=== PATIENT | female | born 1955 | race Caucasian/White ===

== ENCOUNTER 2017-03-18 14:16 | Emergency (ER) | payer BC ==
--- NOTE | 2017-03-18 20:23 | EDM.PDOC ---
ED HPI GENERAL MEDICAL PROBLEM - General Chief Complaint: Upper Extremity Injury/Pain Stated Complaint: FALL Time Seen by Provider: 03/18/17 15:15 Source of Information: Reports: Patient History Limitations: Reports: No Limitations - History of Present Illness INITIAL COMMENTS - FREE TEXT/NARRATIVE: 61 years old w f -Patient access- at [facility], fell at a gas station while pumping gas, over an object-mechanical fall- onto her right arm. Pt was seen last night her in the ed when a valcro splint was applied. Pt came back because she thinks her arm is fractured. She has more pain and swelling today. Pt denies other injuries, no N/V/D or dizziness or any other acute medical issues at this time. Pt was able to go back to work. No F/C. Onset: Today Onset Date: 03/18/17 Onset Time: 01:00 Duration: Hour(s): Location: Reports: Upper Extremity, Right Quality: Reports: Ache Severity: Mild Improves with: Reports: Rest Worsens with: Reports: Movement Context: Reports: Trauma (Pt fell at a gas station this am after work at 1 am.) Associated Symptoms: Reports: No Other Symptoms - Related Data Allergies Allergy/AdvReac Type Severity Reaction Status Date / Time diphenhydramine Allergy Tachycardia Verified 03/18/17 17:36 [From Benadryl] cigarette smoke Allergy Other Uncoded 03/18/17 17:37 mildew Allergy Other Uncoded 03/18/17 17:36 Portk Derived Products Allergy Nausea and Uncoded 03/18/17 17:35 Vomiting Home Meds: Home Meds Acetaminophen/HYDROcodone [Glenford 325-5 MG] 1 tab PO Q4H PRN #12 tab 03/18/17 [Rx ] Carvedilol [Carvedilol] 1 tab PO BID 03/18/17 [History] DULoxetine [Cymbalta] 1 cap PO DAILY 03/18/17 [History] Furosemide [Lasix] 20 mg PO DAILY PRN 03/18/17 [History] Ibuprofen 1 - 3 mg PO Q4H PRN 03/18/17 [History] Lisinopril [Lisinopril] 1 tab PO DAILY 03/18/17 [History] Omeprazole 1 cap PO BIDAC 03/18/17 [History] Sennosides 3 tab PO DAILY 03/18/17 [History] buPROPion HCl [Wellbutrin Xl] 3 tab PO DAILY 03/18/17 [History] hydrOXYzine HCl [hydrOXYzine] 1 - 2 tab PO BEDTIME PRN 03/18/17 [History] traZODone 1 - 1.5 tab PO BEDTIME 03/18/17 [History] Past Medical History - Past Surgical History HEENT Surgical History: Reports: Tonsillectomy GI Surgical History: Reports: Bariatric Procedure, Cholecystectomy, Colonoscopy , EGD, Hernia, Abdominal Female Surgical History: Reports: D&C, Hysterectomy, Other (See Below) Other Female Surgeries/Procedures: Hx bladder surgery. Dermatological Surgical History: Reports: Other (See Below) Social & Family History - Tobacco Use Smoking Status *Q: Never Smoker Review of Systems - Review of Systems Review Of Systems: See Below Constitutional: Reports: No Symptoms Eyes: Reports: No Symptoms Ears: Reports: No Symptoms Nose: Reports: No Symptoms Mouth/Throat: Reports: No Symptoms Respiratory: Reports: No Symptoms Cardiovascular: Reports: No Symptoms GI/Abdominal: Reports: No Symptoms Genitourinary: Reports: No Symptoms Musculoskeletal: Reports: Other (wrist pain) Skin: Reports: No Symptoms Neurological: Reports: No Symptoms Psychiatric: Reports: No Symptoms ED EXAM, GENERAL - Physical Exam Exam: See Below Exam Limited By: No Limitations General Appearance: Alert, WD/WN, Mild Distress Eye Exam: Bilateral Eye: Normal Inspection Ears: Normal External Exam Ear Exam: Bilateral Ear: Auricle Normal Nose: Normal Inspection Throat/Mouth: Normal Inspection Head: Atraumatic, Normocephalic Neck: Normal Inspection Respiratory/Chest: No Respiratory Distress, Lungs Clear, Normal Breath Sounds Cardiovascular: Normal Peripheral Pulses, Regular Rate, Rhythm, No Edema, No JVD GI/Abdominal: Normal Bowel Sounds, Soft, Non-Tender, No Organomegaly (Female) Exam: Deferred Rectal (Female) Exam: Deferred Back Exam: Normal Inspection, Full Range of Motion Extremities: Limited Range of Motion (right wrist with deformaty) Neurological: Alert, Oriented, CN II-XII Intact, Normal Cognition Psychiatric: Normal Affect, Normal Mood Skin Exam: Warm, Dry, Intact, Normal Color, No Rash Lymphatic: No Adenopathy Course - Vital Signs Text/Narrative:: 61 years old w f -Patient access- at [facility], fell at a gas station while pumping gas, over an object-mechanical fall- onto her right arm. Pt was seen last night her in the ed when a valcro splint was applied. Pt came back because she thinks her arm is fractured. She has more pain and swelling today. Pt denies other injuries, no N/V/D or dizziness or any other acute medical issues at this time. Pt was able to go back to work. No F/C. PE: WNWD FF NAD with r forearm deformity. Imaging: R forearm: closed comminuted fracture of right distal radius. Impression: R forearm: closed comminuted fracture of right distal radius. Tx: Valcro splint was in place, Ice, Glenford ( pt is allergic to NSAIDS) elevation Reexam: Improved. [place](?) Plan: D/C with instructions. Last Recorded V/S: Last Vital Signs Temp 36.9 C 03/18/17 15:15 Pulse 70 03/18/17 15:15 Resp 18 03/18/17 15:15 BP 105/74 03/18/17 15:15 Pulse Ox 95 03/18/17 15:15 Departure - Departure Time of Disposition: 20:24 Disposition: Home, Self-Care 01 Condition: Good Clinical Impression: Closed fracture of radius Qualifiers: Encounter type: initial encounter Radius location: distal Laterality: right - Discharge Information Prescriptions: Acetaminophen/HYDROcodone [Glenford 325-5 MG] 1 tab PO Q4H PRN #12 tab PRN Reason: for severe pain only Referrals: PCP,None [Primary Care Provider] - Forms: ED Department Discharge Additional Instructions: Please apply ice to affected area, please take Glenford for severe pain only,keep valcro splint on. Please f/u with ortho as soon as possible. Please come back if your symptoms get worse acutely.
--- NOTE | 2017-03-19 11:01 | CR ---
INDICATION: Fell last evening. RIGHT WRIST: Three views of the left wrist revealed a comminuted Colles' type fracture of the distal radial metaphysis and an oblique fracture through the ulnar styloid. Anterior angulation at the radial fracture site, as well as a degree of lateral angulation of the fracture site, producing medial angulation of the radial joint surface and dorsal angulation of the radial joint surface was noted. Minimal lateral offset of the ulnar styloid fracture fragment is noted. No other significant appearing bone or joint abnormality was identified. IMPRESSION: Colles' fracture with deformity. MTDD
== END 2017-03-18 15:45 | disposition home or self-care (01) ==
LOC: FB.ED 14:16
DX: S52.531A Colles' fracture of right radius, initial encounter for closed fracture (principal); Z79.899 Other long term (current) drug therapy; Z88.8 Allergy status to other drugs, medicaments and biological substances; Z91.048 Other nonmedicinal substance allergy status; W19.XXXA Unspecified fall, initial encounter; Y92.524 Gas station as the place of occurrence of the external cause
CPT/HCPCS: 73110-RT; 99283

== ENCOUNTER 2017-05-25 08:09 | Day surgery (SDC) | payer BC, SELFPAY ==
[2017-05-25] MEDS ORDERED: Sodium Chloride 0.9% 10 ML Syringe FLUSH PRN (08:15)
[2017-05-25] MEDS ORDERED: Lactated Ringers 1,000 ML IV SCH ×2 (08:15→08:45)
[2017-05-25] MEDS ORDERED: Naloxone 0.4 MG/ML SDV IVPUSH PRN (08:39)
[2017-05-25] MEDS ORDERED: Morphine 2 MG/ML Syringe IVPUSH PRN ×2 (08:39)
[2017-05-25] MEDS ORDERED: Promethazine 25 MG/ML SDV IM PRN (08:39)
[2017-05-25] MEDS ORDERED: Albuterol 0.083% 2.5 MG/3 ML Neb Soln NEB PRN (08:39)
[2017-05-25] MEDS ORDERED: Ondansetron 4 MG/2 ML SDV IVPUSH PRN (08:39)
[2017-05-25] MEDS ORDERED: ceFAZolin 2 GM in Premix Bag 1 BAG IV ONE (09:30)
[2017-05-25] MEDS ORDERED: Bupivacaine 0.5% 30 ML SDV INJECT ONE (09:36)
[2017-05-25] MEDS ORDERED: Phenylephrine 1% 10 MG/ML SDV IV ONE (11:00)
[2017-05-25] MEDS ORDERED: Ketamine 500 mg/10 ML MDV IV ONE (11:00)
[2017-05-25] MEDS ORDERED: Scopolamine 1 MG Transdermal Patch TOP ONE (11:00)
[2017-05-25] MEDS ORDERED: Succinylcholine/Normal Saline 100 MG/5 ML Syringe IV ONE (11:00)
[2017-05-25] MEDS ORDERED: Morphine 10 MG/ML Syringe IVPUSH ONE (11:00)
[2017-05-25] MEDS ORDERED: Citric Acid/Sodium Citrate Solution 30 ML Cup PO ONE (11:00)
[2017-05-25] MEDS ORDERED: Ondansetron 4 MG/2 ML SDV IVPUSH ONE (11:00)
[2017-05-25] MEDS ORDERED: fentaNYL 100 MCG/2 ML SDV IV ONE (11:00)
[2017-05-25] MEDS ORDERED: ePHEDrine 50 MG/ML SDV IV ONE (11:00)
[2017-05-25] MEDS ORDERED: Propofol 200 MG/20 ML SDV IV ONE (11:00)
[2017-05-25] MEDS ORDERED: Rocuronium 50 MG/5 ML Vial IV ONE (11:00)
[2017-05-25] MEDS ORDERED: EPINEPHrine 1 MG/ML SDV IV ONE (11:00)
[2017-05-25] MEDS ORDERED: Midazolam 1 MG/ML 2 ML SDV IV ONE (11:00)
[2017-05-25] MEDS ORDERED: Famotidine/Normal Saline 20 MG/50 ML BAG IV ONE (11:00)
[2017-05-25] MEDS ORDERED: hydrOXYzine HCl 50 MG/ML SDV IM ONE (11:25)
[2017-05-25] MEDS: fentaNYL 100 MCG/2 ML SDV IVPUSH PRN ×2 (11:46→12:02)
[2017-05-25] MEDS ORDERED: Ketorolac 15 MG/ML SDV IVPUSH ONE (12:03)
[2017-05-25] MEDS ORDERED: Acetaminophen/oxyCODONE 325-5 MG Tab PO PRN (12:07)
--- NOTE | 2017-05-25 12:28 | CR ---
INDICATION: Intraoperative need for evaluation of ORIF. C-ARM USE LESS THAN ONE HOUR IN O.R.: Four images of the right wrist were obtained in O.R. with C-arm for guidance in placing a plate and screws to fix the distal radial fracture fragments in place. Position and alignment appears to be satisfactory. The plate appears to be intact with multiple screws fixing it in place. MTDD
--- NOTE | 2017-05-25 14:13 | PCM.PRNOTE ---
- Free Text/Narrative Note: Operative note Preoperative diagnosis: Right distal radius malunion after closed fracture on March 18 Postoperative diagnosis: Same Procedure: #1: Open reduction and internal fixation distal radius. #2: Osteotomy right distal radius for correction of malunion Surgeon: Jacinto Villegas D.O. Anesthesia: Laryngeal mask airway Estimated blood loss: 25 mL Fluid: Lactated Ringer's solution Complications: None Specimen: None Discharge disposition: Stable to PACU History and indications for the procedure: The patient was seen preoperatively in the clinic. She was found to have malunion of the right distal radius after splinting from an injury on March 18. She was found to be shortened at least 1 cm with loss of volar tilt. Risks and benefits of the procedure were explained to the patient and informed consent was obtained. Preoperative imaging from the above-mentioned diagnosis. Details of procedure: The patient was seen by myself and the anesthesia staff the preoperative holding area where the operative site was marked. She was brought to the operative suite by the anesthesia staff where general anesthesia was administered via laryngeal mask airway. Well-padded tourniquet was placed on the right arm. The right upper extremity was prepped and draped in a sterile manner. A timeout was called identifying the correct patient, the correct procedure, the correct site, and that antibiotics are being with an appropriate period of time. Incision was made just proximal to the radiocarpal line in line with the flexure carpi radialis tendon extending proximally about 10 cm. Bleeding was controlled with Bovie electrocautery. The volar belly of the FCR tendon was then incised. The FCR was then brought radially. The dorsal sheath of the FCR was then incised. I then removed the radial attachment of the pronator and brought the pronator ulnarly. I inserted a wheatlander for retraction. I then went through the area of the fracture with a small saw blade through both the volar and dorsal cortex. I used an elevator remove any soft tissue from the bone. I removed the brachial radialis tendon which had been attached at the fracture site and cleared all tissue around the radius on its volar and radial and ulnar aspects. I then copiously irrigated with saline and placed cancellus bone chips inside the site to maintain appropriate length. I then inserted a narrow medium right locking volar distal radius plate from [employer] and held this in position with 2 K wires. I then drilled my distal row and inserted screws. I confirmed good placement on intraoperative fluoroscopy. I then drilled my proximal row and inserted screws. I then confirmed placement with intraoperative fluoroscopy. The screws have brought the plate to the bone and then I relied on the volar tilt of the plate for correction while I placed the cortical screws in the proximal holes. I confirmed appropriate placement on intraoperative fluoroscopy. We then copiously irrigated with saline. I let them of the tourniquet at 54 minutes. Minimal bleeding was encountered. I then closed the subcutaneous layer with 2-0 Vicryl. I then closed the skin with horizontal mattress 3-0 nylon sutures. I then applied a Betadine soaked Adaptic , 4 x 4's, web roll, a volar fiberglass splint, and Mirza wrap. The patient was then allowed to awaken from general anesthesia and taken to the PACU in stable condition.
--- NOTE | 2017-05-29 12:20 | PCM.SN ---
- Free Text/Narrative Note: Late entry: 05/25/17 0930 Decadron 4 mg IV
== END 2017-05-25 17:29 ==
LOC: FB.SDS 08:09 → FB.MS 14:23 → FB.SDS 14:23 → FB.MS 17:29
PROVIDERS: ATTEND Orthopaedic Surgery
DX: S52.501P Unspecified fracture of the lower end of right radius, subsequent encounter for closed fracture with malunion (principal); F41.9 Anxiety disorder, unspecified; K21.9 Gastro-esophageal reflux disease without esophagitis; I10 Essential (primary) hypertension; E55.9 Vitamin D deficiency, unspecified; Z88.8 Allergy status to other drugs, medicaments and biological substances; Z79.899 Other long term (current) drug therapy
CPT/HCPCS: 25400; 76000; A9270; J0690; J1885; J2270; J2405; J3010; J3410; J7120; C1713; J0171; J0330; J2250; J2370; J2704; P9045

== ENCOUNTER 2019-12-04 07:12 | Inpatient (IN) | payer MEDICARE, BC ==
[2019-12-04] MEDS ORDERED: Sodium Chloride 0.9% 10 ML Syringe FLUSH PRN (07:30)
[2019-12-04] MEDS: Lactated Ringers 1,000 ML IV SCH ×2 (07:46→15:24)
--- NOTE | 2019-12-04 09:25 | PCM.OPNOTE ---
- General Post-Op/Procedure Note Date of Surgery/Procedure: 12/04/19 Operative Procedure(s): c scope with biopsy Findings: ascending colon polyp Pre Op Diagnosis: bleeding per rectum Post-Op Diagnosis: ascending colon polyp x2 Anesthesia Technique: MAC Primary Surgeon: Eber Clayton Anesthesia Provider: Bin Aguilar Pathology: colon polyp Complications: None Condition: Good Free Text/Narrative:: see dictation
--- NOTE | 2019-12-04 10:39 | PCM.SURGPN ---
- General Info Date of Service: 12/04/19 POD#: 0 - Review of Systems Pulmonary: Reports: Cough (Pt noted to have regurgitation during c scope. Not felt to have aspirpated. nurse noted some wheezes which appear to have cleared. ) - Patient Data Vitals - Most Recent: Last Vital Signs Temp 97.3 F 12/04/19 09:43 Pulse 73 12/04/19 10:16 Resp 17 12/04/19 10:16 BP 110/67 12/04/19 10:16 Pulse Ox 100 12/04/19 10:16 Weight - Most Recent: 123.876 kg Med Orders - Current: Current Medications Lactated Ringer's (Ringers, Lactated) 1,000 mls @ 125 mls/hr IV ASDIRECTED COLLIN Last Admin: 12/04/19 07:46 Dose: 125 mls/hr Documented by: Sodium Chloride (Saline Flush) 10 ml FLUSH ASDIRECTED PRN PRN Reason: Keep Vein Open - Exam General: Alert, Oriented, Cooperative, No Acute Distress Lungs: Other (no wheezes. upper airway sounds ) Sepsis Event Note - Focused Exam Vital Signs: Vital Signs Temp Pulse Resp BP Pulse Ox 12/04/19 10:16 73 17 110/67 100 12/04/19 10:02 72 18 100/65 98 12/04/19 09:47 71 18 95/69 100 12/04/19 09:43 97.3 F 99 19 98 12/04/19 07:35 98.8 F 93 18 136/72 98 Date Exam was Performed: 12/04/19 Time Exam was Performed: 10:35 - Problem List & Annotations (1) Polyp of ascending colon SNOMED Code(s): 712889780 Code(s): K63.5 - POLYP OF COLON Status: Acute Current Visit: Yes Annotation/Comment:: x2 Qualifiers: Colon polyp type: adenomatous Qualified Code(s): D12.2 - Benign neoplasm of ascending colon - Problem List Review Problem List Initiated/Reviewed/Updated: Yes - My Orders Last 24 Hours: Active Orders 24 hr Category Date Time Status Patient Status [ADT] Routine ADT 12/04/19 07:30 Active Patient to Empty Bladder [RC] ASDIRECTED Care 12/04/19 07:30 Active Ready for Discharge [RC] PER UNIT ROUTINE Care 07/16/20 09:24 Active Verify Patient Consent Obtain [RC] ASDIRECTED Care 12/04/19 07:30 Active Nothing Per Oral Diet [DIET] Diet 12/03/19 Dinner Ordered Chest 2V [CR] Routine Exams 12/04/19 10:33 Ordered Lactated Ringers [Ringers, Lactated] 1,000 ml Med 12/04/19 07:30 Active IV ASDIRECTED Sodium Chloride 0.9% [Saline Flush] Med 12/04/19 07:30 Active 10 ml FLUSH ASDIRECTED PRN Peripheral IV Insertion Adult [OM.PC] Routine Oth 12/04/19 07:30 Ordered Resuscitation Status Routine Resus Stat 12/03/19 09:50 Ordered Medication Orders Lactated Ringer's (Ringers, Lactated) 1,000 mls @ 125 mls/hr IV ASDIRECTED COLLIN Last Admin: 12/04/19 07:46 Dose: 125 mls/hr Documented by: FRIEAUG Sodium Chloride (Saline Flush) 10 ml FLUSH ASDIRECTED PRN PRN Reason: Keep Vein Open - Assessment Assessment (Free Text/Narrative):: no overt evidence of aspiration maintianign sats. - Plan Plan (Free Text/Narrative):: will obtain a cxr for a baseline.
[2019-12-04] MEDS ORDERED: Albuterol/Ipratropium 3.0-0.5 MG/3 ML Neb Soln NEB ONE (11:05)
[2019-12-04] MEDS ORDERED: Calcium Carbonate 500 MG Tab.Chew PO ONE (12:19)
[2019-12-04] MEDS ORDERED: Albuterol 0.083% 2.5 MG/3 ML Neb Soln NEB ONE (12:53)
[2019-12-04] MEDS ORDERED: Pantoprazole 40 MG Vial IVPUSH ONE (12:54)
[2019-12-04] MEDS ORDERED: Sodium Chloride 0.9% 1,000 ML IV SCH (13:00)
--- NOTE | 2019-12-04 13:04 | PCM.SN.2 ---
- Free Text/Narrative Note: c/o aspiration pt came to outpt surgery for an elective colonoscopy with Dr Clayton, pt had conscious sedation with electrical tryout person at bedside, complete Go-Lytely at 02:45 and had procedure at 09:00 with surgeon and electrical tryout person at bedside, has h/o GERD and gastric bypass, no h/o gastroparesis or DM during procedure pt aspirated with prominent markings now on CxR and CT, without comparison for either CT chest read as multifocal alveolar infiltrate and bronchial wall thickening involving the VASILE and LLL typical of infectious/inflammatory pneumonitis with aspiratio not excluded. No hilar adenopathy. 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, personality DO CV: HF, nonischemic CMP : female stress incontinence, retention of urine PSH lap choly, JUSTINE with BSO, gastric bypass, tonsills, ventral hernia repair SH never smoked, no alcohol MED: BEH: trazodone 1-1.5 tab qhs, hydroxyzine 1-2 tab qhs, duloxetin 60/d CV: carvedilol 12.5 bid, lis 20/d GI: omeprazole 20 bid MOST RECENT LABS IN [facility] 3y ago with CBC neg, wbc 5.2, hgb 13.3, plt 294 3y ago with CMP with BUN/creat 13/1.2 with GFR 45, no comparison 3y ago with TSH 2.05 and neg 6y ago with d-dimer 315 (nl 100-400) PE: anxious, alert, conversant in 10-word sentences, tachypnea without dyspnea, no purse lips, no retractions, no accessory muscles, does have moderate insp/exp wheezing on L side (has been intermittently clear per RN) without rales, clear on right, fair AE, HEENT neg, neck supple no LNs, CV RRR, tachy, 2/6 DALE at LSB, quiet precordium, abd obese and soft and NT, ext with trace pretib edema b/l and symmetric, turgor WNL UEs EKG with ST 126, QTc 501, NSSTs, no comparison labs reviewed, Mg low, trop and BNP wnl 2:05p d/w Dr Perez who accepted her in admission, pt agrees, pt with no children, lives alone, HR remains 125, will keep on telemetry ASSESS aspiration pneumonitis hypomagnesemia hypoxia sinus tachycardia PLAN admit
[2019-12-04] MEDS ORDERED: Ampicillin/Sulbactam Na 3 GM in Sodium Chloride 0.9% 100 ML IV ONE (13:23)
[2019-12-04] MEDS ORDERED: Ondansetron 4 MG/2 ML SDV IV PRN (14:23)
[2019-12-04] MEDS ORDERED: Acetaminophen 325 MG Tab PO PRN (14:23)
[2019-12-04] MEDS ORDERED: Magnesium Sulfate/Water 2 GM in Premix Bag 1 BAG IV ONE (14:26)
[2019-12-04] MEDS ORDERED: Zolpidem 5 MG Tab PO PRN (14:29)
--- NOTE | 2019-12-04 14:33 | OR ---
DATE OF OPERATION: 12/04/2019 SURGEON: Eber Clayton MD PROCEDURE PERFORMED: Colonoscopy with cold forceps biopsy. PREOPERATIVE DIAGNOSIS: History of blood per rectum. POSTOPERATIVE DIAGNOSIS: Ascending colon polyps x2. INDICATIONS FOR PROCEDURE: This is a 64-year-old white female referred with history of some bleeding and some diarrhea, which has resolved. She was offered and accepted colonoscopy as part of a workup. DESCRIPTION OF OPERATION: After an excellent IV sedation was administered, digital rectal exam was performed. No marked abnormality was noted. The flexible colonoscope was inserted and advanced with some difficulty to the cecum, due to the patient's obesity and looping of the scope. We did have to apply intraabdominal pressure to achieve the cecum, but we were able to get a good view. The following findings were noted: Ascending colon and the cecum with 2 small sessile polyps, biopsied with combination of cold loop and cold forceps and submitted in one container. Transverse colon, unremarkable. Descending colon, unremarkable. Sigmoid and rectum, unremarkable. Colon was deflated as the scope was removed. The patient tolerated the procedure well, was taken to Recovery in good condition. Results will be sent by letter. /[id number] /MODL
[2019-12-04] MEDS: Albuterol 0.083% 2.5 MG/3 ML Neb Soln NEB SCH ×3 (15:31→20:22)
[2019-12-04] MEDS ORDERED: Ondansetron 4 MG/2 ML SDV IVPUSH ONE (16:09)
[2019-12-04] MEDS ORDERED: Propofol 200 MG/20 ML SDV IV ONE (16:09)
[2019-12-04] MEDS ORDERED: Lactated Ringers 1,000 ML IV ONE (16:09)
[2019-12-04] MEDS: Pantoprazole 40 MG Tab.CR PO SCH (17:03)
[2019-12-04] MEDS ORDERED: Lactated Ringers 1,000 ML IV SCH (19:05)
[2019-12-04] MEDS: Ampicillin/Sulbactam Na 3 GM in Sodium Chloride 0.9% 100 ML IV SCH (19:08)
--- NOTE | 2019-12-04 19:39 | PCM.HP.2 ---
H&P History of Present Illness - General Date of Service: 12/04/19 Admit Problem/Dx: Admission Diagnosis/Problem Admission Diagnosis/Problem Colonoscopy Source of Information: Patient, Old Records History Limitations: Reports: No Limitations - History of Present Illness Initial Comments - Free Text/Narative: Rhonda is a 64-year-old female who comes in because of aspiration pneumonitis. She had a colonoscopy this morning, by Dr. Clayton, for constipation. During the procedure and conscious sedation, she experienced vomiting and ostensibly aspirated. She subsequently became hypoxic was transferred to the ER where workup revealed an infiltration of the left lobe of lung. She is currently stable on 2 L of oxygenation;complains of no pain she dove initial wheezing which is symptoms improved. She does history of obesity, she status post gastric bypass. She also has a history of nonischemic cardiomyopathy major depression and iron deficiency anemia. Head Pain Score (Numeric/FACES): 4 - Related Data Allergies/Adverse Reactions: Allergies Allergy/AdvReac Type Severity Reaction Status Date / Time diphenhydramine Allergy Tachycardia Verified 12/04/19 07:44 [From Benadryl] cigarette smoke Allergy Other Uncoded 12/04/19 07:44 mildew Allergy Other Uncoded 12/04/19 07:44 Portk Derived Products Allergy Nausea and Uncoded 12/04/19 07:44 Vomiting Home Medications: Home Meds DULoxetine [Cymbalta] 60 mg PO DAILY 03/18/17 [History] Ibuprofen 1 - 3 mg PO Q4H PRN 03/18/17 [History] Lisinopril 20 mg PO DAILY 03/18/17 [History] Omeprazole 20 mg PO BIDAC 03/18/17 [History] carvediloL [Carvedilol] 12.5 mg PO BID 03/18/17 [History] hydrOXYzine HCL [hydrOXYzine] 25 - 50 mg PO BEDTIME PRN 03/18/17 [History] traZODone 150 mg PO BEDTIME 03/18/17 [History] Past Medical History HEENT History: Reports: Impaired Vision, Sinusitis Other HEENT History: ESOPHAGEAL REFLUX; LABYRINTH DYSFUNCTION OF BOTH EARS Cardiovascular History: Reports: Heart Failure, Hypertension, Other (See Below) Other Cardiovascular History: NONISCHEMIC CARDIOMYOPATHY Gastrointestinal History: Reports: GERD Genitourinary History: Reports: Renal Calculus Musculoskeletal History: Reports: Fracture Neurological History: Reports: Migraines, Vertigo Psychiatric History: Reports: Anxiety, Depression, Suicide Attempt Other Psychiatric History: personality disorder; MAJOR DEPRESSIVE DISORDER; DYSTHYMIC DISORDER; GENERALIZE ANXIETY DISORDER; Endocrine/Metabolic History: Reports: Obesity/BMI 30+, Vitamin D Deficiency Other Endocrine/Metabolic History: IRON DEFICIENCY ANEMIA; NUTRITIONAL ANEMIA; Oncologic (Cancer) History: Reports: Uterine - Past Surgical History HEENT Surgical History: Reports: Tonsillectomy GI Surgical History: Reports: Appendectomy, Bariatric Procedure, Cholecystectomy Female Surgical History: Reports: Hysterectomy, Oophorectomy, Other (See Below) Other Female Surgeries/Procedures: Hx bladder surgery. Dermatological Surgical History: Reports: Other (See Below) Social & Family History - Family History Family Medical History: Noncontributory - Tobacco Use Smoking Status *Q: Never Smoker Second Hand Smoke Exposure: Yes - Caffeine Use Caffeine Use: Reports: Coffee, Tea - Recreational Drug Use Recreational Drug Use: No H&P Review of Systems - Review of Systems: Review Of Systems: Comprehensive ROS is negative, except as noted in HPI. Exam - Exam Exam: See Below - Vital Signs Vital Signs: Last Vital Signs Temp 99.9 F 12/04/19 15:16 Pulse 108 H 12/04/19 15:16 Resp 20 12/04/19 15:16 BP 106/59 L 12/04/19 15:16 Pulse Ox 96 12/04/19 18:42 Weight: 125.237 kg - Exam Quality Assessment: Supplemental Oxygen General: Alert, Oriented HEENT: PERRLA Neck: Supple, Trachea Midline Lungs: Rales Cardiovascular: Regular Rate GI/Abdominal Exam: Normal Bowel Sounds, Soft (Female) Exam: Deferred Rectal (Female) Exam: Deferred Back Exam: Normal Inspection Extremities: Normal Inspection Skin: Warm, Dry Neurological: Cranial Nerves Intact Neuro Extensive - Mental Status: Alert, Oriented x3 Neuro Extensive - Motor, Sensory, Reflexes: CN II-XII Intact Psychiatric: Alert, Normal Affect - Patient Data Lab Results Last 24 hrs: Laboratory Results - last 24 hr 12/04/19 12/04/19 12/04/19 Range/Units 13:30 13:30 13:30 WBC 6.2 (4.5-12.0) X10-3/uL RBC 4.79 (3.23-5.20) x10(6)uL Hgb 14.5 (11.5-15.5) g/dL Hct 45.1 (30.0-51.3) % MCV 94.3 (80-96) fL MCH 30.3 (27.7-33.6) pg MCHC 32.1 L (32.2-35.4) g/dL RDW 13.5 (11.5-15.5) % Plt Count 225 (125-369) X10(3)uL MPV 6.7 L (7.4-10.4) fL Neut % (Auto) 83.4 H (46-82) % Lymph % (Auto) 11.5 L (13-37) % [place] % (Auto) 2.2 L (4-12) % Eos % (Auto) 1 (1.0-5.0) % Baso % (Auto) 2 (0-2) % Neut # (Auto) 5.3 (1.6-8.3) # Lymph # (Auto) 0.7 (0.6-5.0) # [place] # (Auto) 0.1 (0.0-1.3) # Eos # (Auto) 0.0 (0.0-0.8) # Baso # (Auto) 0.1 (0.0-0.2) # Sodium 140 (135-145) mmol/L Potassium 4.2 (3.5-5.3) mmol/L Chloride 105 (100-110) mmol/L Carbon Dioxide 28 (21-32) mmol/L BUN 10 (7-18) mg/dL Creatinine 1.1 H (0.55-1.02) mg/dL Est Cr Clr Drug Dosing 38.88 mL/min Estimated GFR (MDRD) 50 L (>60) BUN/Creatinine Ratio 9.1 (9-20) Glucose 112 (80-116) mg/dL Lactic Acid (0.4-2.0) mmol/L Calcium 8.3 L (8.6-10.2) mg/dL Magnesium (1.8-2.5) mg/dL Total Bilirubin 0.7 (0.1-1.3) mg/dL AST 24 (5-25) IU/L ALT 20 (12-36) U/L Alkaline Phosphatase 139 H (56-112) IU/L Troponin I (4.0-60.3) pg/mL C-Reactive Protein 1.4 H (0.5-0.9) mg/dL NT-Pro-B Natriuret Pep (<=125) pg/mL Total Protein 6.6 (6.0-8.0) g/dL Albumin 3.2 (3.2-4.6) g/dL Globulin 3.4 g/dL Albumin/Globulin Ratio 0.9 Urine Color (YELLOW) Urine Appearance (CLEAR) Urine pH (5.0-6.5) Ur Specific [place] (1.010-1.025) Urine Protein (NEGATIVE) mg/dL Urine Glucose (UA) (NORMAL) mg/dL Urine Ketones (NEGATIVE) mg/dL Urine Occult Blood (NEGATIVE) Urine Nitrite (NEGATIVE) Urine Bilirubin (NEGATIVE) Urine Urobilinogen (NEGATIVE) mg/dL Ur Leukocyte Esterase (NEGATIVE) Urine WBC (0-5) Ur Squamous Epith Cells (NS,R,O) Urine Bacteria (NS) 12/04/19 12/04/19 12/04/19 Range/Units 13:30 13:30 13:30 WBC (4.5-12.0) X10-3/uL RBC (3.23-5.20) x10(6)uL Hgb (11.5-15.5) g/dL Hct (30.0-51.3) % MCV (80-96) fL MCH (27.7-33.6) pg MCHC (32.2-35.4) g/dL RDW (11.5-15.5) % Plt Count (125-369) X10(3)uL MPV (7.4-10.4) fL Neut % (Auto) (46-82) % Lymph % (Auto) (13-37) % [place] % (Auto) (4-12) % Eos % (Auto) (1.0-5.0) % Baso % (Auto) (0-2) % Neut # (Auto) (1.6-8.3) # Lymph # (Auto) (0.6-5.0) # [place] # (Auto) (0.0-1.3) # Eos # (Auto) (0.0-0.8) # Baso # (Auto) (0.0-0.2) # Sodium (135-145) mmol/L Potassium (3.5-5.3) mmol/L Chloride (100-110) mmol/L Carbon Dioxide (21-32) mmol/L BUN (7-18) mg/dL Creatinine (0.55-1.02) mg/dL Est Cr Clr Drug Dosing mL/min Estimated GFR (MDRD) (>60) BUN/Creatinine Ratio (9-20) Glucose (80-116) mg/dL Lactic Acid 1.4 (0.4-2.0) mmol/L Calcium (8.6-10.2) mg/dL Magnesium 1.6 L (1.8-2.5) mg/dL Total Bilirubin (0.1-1.3) mg/dL AST (5-25) IU/L ALT (12-36) U/L Alkaline Phosphatase (56-112) IU/L Troponin I 5.2 (4.0-60.3) pg/mL C-Reactive Protein (0.5-0.9) mg/dL NT-Pro-B Natriuret Pep 94 (<=125) pg/mL Total Protein (6.0-8.0) g/dL Albumin (3.2-4.6) g/dL Globulin g/dL Albumin/Globulin Ratio Urine Color (YELLOW) Urine Appearance (CLEAR) Urine pH (5.0-6.5) Ur Specific [place] (1.010-1.025) Urine Protein (NEGATIVE) mg/dL Urine Glucose (UA) (NORMAL) mg/dL Urine Ketones (NEGATIVE) mg/dL Urine Occult Blood (NEGATIVE) Urine Nitrite (NEGATIVE) Urine Bilirubin (NEGATIVE) Urine Urobilinogen (NEGATIVE) mg/dL Ur Leukocyte Esterase (NEGATIVE) Urine WBC (0-5) Ur Squamous Epith Cells (NS,R,O) Urine Bacteria (NS) 12/04/19 Range/Units 13:34 WBC (4.5-12.0) X10-3/uL RBC (3.23-5.20) x10(6)uL Hgb (11.5-15.5) g/dL Hct (30.0-51.3) % MCV (80-96) fL MCH (27.7-33.6) pg MCHC (32.2-35.4) g/dL RDW (11.5-15.5) % Plt Count (125-369) X10(3)uL MPV (7.4-10.4) fL Neut % (Auto) (46-82) % Lymph % (Auto) (13-37) % [place] % (Auto) (4-12) % Eos % (Auto) (1.0-5.0) % Baso % (Auto) (0-2) % Neut # (Auto) (1.6-8.3) # Lymph # (Auto) (0.6-5.0) # [place] # (Auto) (0.0-1.3) # Eos # (Auto) (0.0-0.8) # Baso # (Auto) (0.0-0.2) # Sodium (135-145) mmol/L Potassium (3.5-5.3) mmol/L Chloride (100-110) mmol/L Carbon Dioxide (21-32) mmol/L BUN (7-18) mg/dL Creatinine (0.55-1.02) mg/dL Est Cr Clr Drug Dosing mL/min Estimated GFR (MDRD) (>60) BUN/Creatinine Ratio (9-20) Glucose (80-116) mg/dL Lactic Acid (0.4-2.0) mmol/L Calcium (8.6-10.2) mg/dL Magnesium (1.8-2.5) mg/dL Total Bilirubin (0.1-1.3) mg/dL AST (5-25) IU/L ALT (12-36) U/L Alkaline Phosphatase (56-112) IU/L Troponin I (4.0-60.3) pg/mL C-Reactive Protein (0.5-0.9) mg/dL NT-Pro-B Natriuret Pep (<=125) pg/mL Total Protein (6.0-8.0) g/dL Albumin (3.2-4.6) g/dL Globulin g/dL Albumin/Globulin Ratio Urine Color Yellow (YELLOW) Urine Appearance Slightly cloudy (CLEAR) Urine pH 5.0 (5.0-6.5) Ur Specific [place] 1.015 (1.010-1.025) Urine Protein Negative (NEGATIVE) mg/dL Urine Glucose (UA) Normal (NORMAL) mg/dL Urine Ketones 15 H (NEGATIVE) mg/dL Urine Occult Blood Negative (NEGATIVE) Urine Nitrite Negative (NEGATIVE) Urine Bilirubin Negative (NEGATIVE) Urine Urobilinogen Normal (NEGATIVE) mg/dL Ur Leukocyte Esterase Moderate H (NEGATIVE) Urine WBC 5-10 H (0-5) Ur Squamous Epith Cells Few H (NS,R,O) Urine Bacteria Moderate H (NS) Result Diagrams: 12/04/19 13:30 12/04/19 13:30 Sepsis Event Note - Evaluation Sepsis Screening Result: No Definite Risk - Focused Exam Vital Signs: Vital Signs Temp Pulse Resp BP Pulse Ox Pulse Ox 12/04/19 18:42 96 12/04/19 15:31 97 12/04/19 15:16 99.9 F 108 H 20 106/59 L 97 12/04/19 14:23 97 12/04/19 14:11 124 H 22 H 114/70 93 L 12/04/19 13:37 126 H 23 H 131/75 96 12/04/19 13:03 124 H 22 H 131/75 95 12/04/19 12:30 108 H 18 143/100 H 97 12/04/19 12:10 98.1 F 12/04/19 11:48 85 16 117/55 L 92 L 12/04/19 11:30 76 17 112/59 L 95 12/04/19 11:15 74 16 106/57 L 95 12/04/19 10:54 69 15 133/66 95 12/04/19 10:30 76 17 107/90 93 L 12/04/19 10:16 73 17 110/67 100 12/04/19 10:02 72 18 100/65 98 12/04/19 09:47 71 18 95/69 100 12/04/19 09:43 97.3 F 99 19 98 12/04/19 07:35 98.8 F 93 18 136/72 98 Date Exam was Performed: 12/04/19 Time Exam was Performed: 19:32 - Problem List (1) Aspiration pneumonitis SNOMED Code(s): 291144094 ICD Code: J69.0 - PNEUMONITIS DUE TO INHALATION OF FOOD AND VOMIT Status: Acute Current Visit: Yes (2) Obesities, morbid SNOMED Code(s): 021595731 ICD Code: E66.01 - MORBID (SEVERE) OBESITY DUE TO EXCESS CALORIES Status: Acute Current Visit: Yes (3) Status post gastric bypass for obesity SNOMED Code(s): 202513868, 300084758, 482772580, 994696601 ICD Code: Z98.84 - BARIATRIC SURGERY STATUS Status: Acute Current Visit: Yes (4) Non-ischemic cardiomyopathy SNOMED Code(s): 72480628 ICD Code: I42.8 - OTHER CARDIOMYOPATHIES Status: Acute Current Visit: Yes (5) Personality disorder SNOMED Code(s): 80829286 ICD Code: F60.9 - PERSONALITY DISORDER, UNSPECIFIED Status: Acute Current Visit: Yes (6) MDD (major depressive disorder) SNOMED Code(s): 436507290 ICD Code: F32.9 - MAJOR DEPRESSIVE DISORDER, SINGLE EPISODE, UNSPECIFIED Status: Acute Current Visit: Yes Qualifiers: Major depression recurrence: recurrent Problem List Initiated/Reviewed/Updated: Yes Orders Last 24hrs: Active Orders 24 hr Category Date Time Status Admission Status [Patient Status] [ADT] Routine ADT 12/04/19 14:15 Active Patient Status [ADT] Routine ADT 12/04/19 07:30 Active Cardiac Monitoring [RC] CONTINUOUS Care 12/04/19 14:23 Active EKG Documentation Completion [RC] 08 Care 12/04/19 14:35 Active Oxygen Therapy [RC] PRN Care 12/04/19 14:23 Active RT Aerosol Therapy [RC] ASDIRECTED Care 12/04/19 14:24 Active RT Incentive Spirometry [RC] Q4HWA Care 12/04/19 19:30 Ordered Ready for Discharge [RC] PER UNIT ROUTINE Care 12/04/19 09:24 Active Up With Assistance [RC] ASDIRECTED Care 12/04/19 14:23 Active Vital Signs [RC] 00,04,08,12,16,20 Care 12/04/19 14:23 Active 2 Gram Sodium Diet [DIET] Diet 12/05/19 Breakfast Active Chest 2V [CR] Routine Exams 12/04/19 10:33 Taken Chest wo Cont [CT] Routine Exams 12/04/19 11:03 Taken BASIC METABOLIC PANEL,BMP [CHEM] DAILY Lab 12/05/19 05:11 Ordered BASIC METABOLIC PANEL,BMP [CHEM] DAILY Lab 12/06/19 05:11 Ordered BASIC METABOLIC PANEL,BMP [CHEM] DAILY Lab 12/07/19 05:11 Ordered CBC WITH AUTO DIFF [HEME] DAILY Lab 12/05/19 05:11 Ordered CBC WITH AUTO DIFF [HEME] DAILY Lab 12/06/19 05:11 Ordered CBC WITH AUTO DIFF [HEME] DAILY Lab 12/07/19 05:11 Ordered COMPREHENSIVE METABOLIC PN,CMP [CHEM] AM Lab 12/05/19 05:11 Ordered CULTURE URINE [RM] Routine Lab 12/04/19 13:31 Received PRO B-TYPE NATRIUR PEPT,BNPPRO [CHEM] DAILY Lab 12/05/19 05:11 Ordered TROPONIN I [CHEM] Routine Lab 12/05/19 05:11 Ordered Acetaminophen [Tylenol] Med 12/04/19 14:23 Active 650 mg PO Q4H PRN Albuterol [Proventil Neb Soln] Med 12/04/19 14:30 Active 2.5 mg NEB Q3H Ampicillin/Sulbactam Na [Unasyn] 3 gm Med 12/04/19 19:30 Active Sodium Chloride 0.9% [Normal Saline] 100 ml IV Q6H DULoxetine [Cymbalta] Med 12/05/19 09:00 Active 60 mg PO DAILY Enoxaparin [Lovenox] Med 12/04/19 21:00 Active 40 mg SUBCUT Q24H Ondansetron [Zofran] Med 12/04/19 14:23 Active 4 mg IV Q4H PRN Pantoprazole [ProTONIX] Med 12/04/19 17:30 Active 40 mg PO BIDAC Sodium Chloride 0.9% [Normal Saline] 1,000 ml Med 12/04/19 13:00 Active IV ASDIRECTED Sodium Chloride 0.9% [Saline Flush] Med 12/04/19 07:30 Active 10 ml FLUSH ASDIRECTED PRN Zolpidem [Ambien] Med 12/04/19 14:29 Active 5 mg PO BEDTIME PRN carvediloL [Coreg] Med 12/04/19 21:00 Active 12.5 mg PO BID lisinopriL [Prinivil] Med 12/05/19 09:00 Active 20 mg PO DAILY traZODone Med 12/04/19 21:00 Active 150 mg PO BEDTIME Peripheral IV Insertion Adult [OM.PC] Routine Oth 12/04/19 07:30 Ordered EKG 12 Lead [EK] Routine Ther 12/04/19 12:55 Ordered EKG 12 Lead [EK] Routine Ther 12/05/19 08:00 Ordered Medication Orders Acetaminophen (Tylenol) 650 mg PO Q4H PRN PRN Reason: Pain (Mild 1-3)/fever Last Admin: 12/04/19 17:03 Dose: 650 mg Documented by: [id number] Albuterol (Proventil Neb Soln) 2.5 mg NEB Q3H [facility] Last Admin: 12/04/19 18:20 Dose: 2.5 mg Documented by: Admin: 12/04/19 15:31 Dose: 2.5 mg Documented by: [email or web address] Carvedilol (Coreg) 12.5 mg PO BID [facility] Duloxetine HCl (Cymbalta) 60 mg PO DAILY [facility] Enoxaparin Sodium (Lovenox) 40 mg SUBCUT Q24H [facility] Sodium Chloride (Normal Saline) 1,000 mls @ 999 mls/hr IV ASDIRECTED [facility] Last Admin: 12/04/19 13:22 Dose: 999 mls/hr Documented by: [email or web address] Ampicillin Sodium/Sulbactam (Sodium 3 gm/ Sodium Chloride) 100 mls @ 100 mls/hr IV Q6H [facility] Last Admin: 12/04/19 19:08 Dose: 100 mls/hr Documented by: [id number] Lisinopril (Prinivil) 20 mg PO DAILY [facility] Ondansetron HCl (Zofran) 4 mg IV Q4H PRN PRN Reason: Nausea/Vomiting Pantoprazole Sodium (Protonix) 40 mg PO BIDAC [facility] Last Admin: 12/04/19 17:03 Dose: 40 mg Documented by: [id number] Sodium Chloride (Saline Flush) 10 ml FLUSH ASDIRECTED PRN PRN Reason: Keep Vein Open Trazodone HCl (Trazodone) 150 mg PO BEDTIME [facility] Zolpidem Tartrate (Ambien) 5 mg PO BEDTIME PRN PRN Reason: Insomnia Assessment/Plan Comment:: Admit for IV antinitoics,.O2 supplementation and IS. Repeat labs in Am
[2019-12-04] MEDS: Enoxaparin 40 MG/0.4 ML Syringe SUBCUT SCH (20:27)
[2019-12-04] MEDS: traZODone 50 MG Tab PO SCH (20:28)
[2019-12-04] MEDS: Carvedilol 12.5 MG Tab PO SCH (20:28)
[2019-12-05] MEDS: Albuterol 0.083% 2.5 MG/3 ML Neb Soln NEB SCH ×4 (00:28→08:47)
[2019-12-05] MEDS: Ampicillin/Sulbactam Na 3 GM in Sodium Chloride 0.9% 100 ML IV SCH ×4 (00:30→19:24)
[2019-12-05] MEDS: Pantoprazole 40 MG Tab.CR PO SCH ×2 (06:30→17:40)
[2019-12-05] MEDS: DULoxetine 60 MG Cap PO SCH (08:46)
[2019-12-05] MEDS: Carvedilol 12.5 MG Tab PO SCH ×2 (08:46→20:37)
[2019-12-05] MEDS: Lisinopril 20 MG Tab PO SCH (08:46)
--- NOTE | 2019-12-05 10:42 | PCM.PN ---
- General Info Date of Service: 12/05/19 Admission Dx/Problem (Free Text): Doing better this morning, weaned off oxygen. Denies shortness of breath. No abdominal pain, nausea, vomiting. States she normally takes Omeprazole for heartburn, tries to prop herself up at home. States she has been dealing with depression, gained weight to do decreased activity with increased intake. Admits that she is deconditioned. Does want to see spiritual services this morning. Found 2 polyps on Colonoscopy yesterday, white count up today. - Patient Data Vitals - Most Recent: Last Vital Signs Temp 98.5 F 12/05/19 08:00 Pulse 82 12/05/19 09:00 Resp 18 12/05/19 08:00 BP 135/53 L 12/05/19 08:46 Pulse Ox 92 L 12/05/19 09:00 Weight - Most Recent: 276 lb 1.6 oz I&O - Last 24 Hours: Intake & Output 12/04/19 12/05/19 12/05/19 22:59 06:59 14:59 Intake Total 1586 450 Balance 1586 450 Lab Results Last 24 Hours: Laboratory Results - last 24 hr 12/04/19 12/04/19 12/04/19 Range/Units 13:30 13:30 13:30 WBC 6.2 (4.5-12.0) X10-3/uL RBC 4.79 (3.23-5.20) x10(6)uL Hgb 14.5 (11.5-15.5) g/dL Hct 45.1 (30.0-51.3) % MCV 94.3 (80-96) fL MCH 30.3 (27.7-33.6) pg MCHC 32.1 L (32.2-35.4) g/dL RDW 13.5 (11.5-15.5) % Plt Count 225 (125-369) X10(3)uL MPV 6.7 L (7.4-10.4) fL Neut % (Auto) 83.4 H (46-82) % Lymph % (Auto) 11.5 L (13-37) % [place] % (Auto) 2.2 L (4-12) % Eos % (Auto) 1 (1.0-5.0) % Baso % (Auto) 2 (0-2) % Neut # (Auto) 5.3 (1.6-8.3) # Lymph # (Auto) 0.7 (0.6-5.0) # [place] # (Auto) 0.1 (0.0-1.3) # Eos # (Auto) 0.0 (0.0-0.8) # Baso # (Auto) 0.1 (0.0-0.2) # Sodium 140 (135-145) mmol/L Potassium 4.2 (3.5-5.3) mmol/L Chloride 105 (100-110) mmol/L Carbon Dioxide 28 (21-32) mmol/L BUN 10 (7-18) mg/dL Creatinine 1.1 H (0.55-1.02) mg/dL Est Cr Clr Drug Dosing 38.88 mL/min Estimated GFR (MDRD) 50 L (>60) BUN/Creatinine Ratio 9.1 (9-20) Glucose 112 (80-116) mg/dL Lactic Acid (0.4-2.0) mmol/L Calcium 8.3 L (8.6-10.2) mg/dL Magnesium (1.8-2.5) mg/dL Total Bilirubin 0.7 (0.1-1.3) mg/dL AST 24 (5-25) IU/L ALT 20 (12-36) U/L Alkaline Phosphatase 139 H (56-112) IU/L Troponin I (4.0-60.3) pg/mL C-Reactive Protein 1.4 H (0.5-0.9) mg/dL NT-Pro-B Natriuret Pep (<=125) pg/mL Total Protein 6.6 (6.0-8.0) g/dL Albumin 3.2 (3.2-4.6) g/dL Globulin 3.4 g/dL Albumin/Globulin Ratio 0.9 Urine Color (YELLOW) Urine Appearance (CLEAR) Urine pH (5.0-6.5) Ur Specific [place] (1.010-1.025) Urine Protein (NEGATIVE) mg/dL Urine Glucose (UA) (NORMAL) mg/dL Urine Ketones (NEGATIVE) mg/dL Urine Occult Blood (NEGATIVE) Urine Nitrite (NEGATIVE) Urine Bilirubin (NEGATIVE) Urine Urobilinogen (NEGATIVE) mg/dL Ur Leukocyte Esterase (NEGATIVE) Urine WBC (0-5) Ur Squamous Epith Cells (NS,R,O) Urine Bacteria (NS) 12/04/19 12/04/19 12/04/19 Range/Units 13:30 13:30 13:30 WBC (4.5-12.0) X10-3/uL RBC (3.23-5.20) x10(6)uL Hgb (11.5-15.5) g/dL Hct (30.0-51.3) % MCV (80-96) fL MCH (27.7-33.6) pg MCHC (32.2-35.4) g/dL RDW (11.5-15.5) % Plt Count (125-369) X10(3)uL MPV (7.4-10.4) fL Neut % (Auto) (46-82) % Lymph % (Auto) (13-37) % [place] % (Auto) (4-12) % Eos % (Auto) (1.0-5.0) % Baso % (Auto) (0-2) % Neut # (Auto) (1.6-8.3) # Lymph # (Auto) (0.6-5.0) # [place] # (Auto) (0.0-1.3) # Eos # (Auto) (0.0-0.8) # Baso # (Auto) (0.0-0.2) # Sodium (135-145) mmol/L Potassium (3.5-5.3) mmol/L Chloride (100-110) mmol/L Carbon Dioxide (21-32) mmol/L BUN (7-18) mg/dL Creatinine (0.55-1.02) mg/dL Est Cr Clr Drug Dosing mL/min Estimated GFR (MDRD) (>60) BUN/Creatinine Ratio (9-20) Glucose (80-116) mg/dL Lactic Acid 1.4 (0.4-2.0) mmol/L Calcium (8.6-10.2) mg/dL Magnesium 1.6 L (1.8-2.5) mg/dL Total Bilirubin (0.1-1.3) mg/dL AST (5-25) IU/L ALT (12-36) U/L Alkaline Phosphatase (56-112) IU/L Troponin I 5.2 (4.0-60.3) pg/mL C-Reactive Protein (0.5-0.9) mg/dL NT-Pro-B Natriuret Pep 94 (<=125) pg/mL Total Protein (6.0-8.0) g/dL Albumin (3.2-4.6) g/dL Globulin g/dL Albumin/Globulin Ratio Urine Color (YELLOW) Urine Appearance (CLEAR) Urine pH (5.0-6.5) Ur Specific [place] (1.010-1.025) Urine Protein (NEGATIVE) mg/dL Urine Glucose (UA) (NORMAL) mg/dL Urine Ketones (NEGATIVE) mg/dL Urine Occult Blood (NEGATIVE) Urine Nitrite (NEGATIVE) Urine Bilirubin (NEGATIVE) Urine Urobilinogen (NEGATIVE) mg/dL Ur Leukocyte Esterase (NEGATIVE) Urine WBC (0-5) Ur Squamous Epith Cells (NS,R,O) Urine Bacteria (NS) 12/04/19 12/05/19 12/05/19 Range/Units 13:34 06:32 06:32 WBC 15.0 H (4.5-12.0) X10-3/uL RBC 3.94 (3.23-5.20) x10(6)uL Hgb 12.2 (11.5-15.5) g/dL Hct 36.9 (30.0-51.3) % MCV 93.6 (80-96) fL MCH 30.9 (27.7-33.6) pg MCHC 33.0 (32.2-35.4) g/dL RDW 13.8 (11.5-15.5) % Plt Count 219 (125-369) X10(3)uL MPV 6.7 L (7.4-10.4) fL Neut % (Auto) 84.3 H (46-82) % Lymph % (Auto) 9.3 L (13-37) % [place] % (Auto) 5.1 (4-12) % Eos % (Auto) 1 (1.0-5.0) % Baso % (Auto) 1 (0-2) % Neut # (Auto) 12.6 H (1.6-8.3) # Lymph # (Auto) 1.4 (0.6-5.0) # [place] # (Auto) 0.8 (0.0-1.3) # Eos # (Auto) 0.1 (0.0-0.8) # Baso # (Auto) 0.1 (0.0-0.2) # Sodium 139 (135-145) mmol/L Potassium 3.5 (3.5-5.3) mmol/L Chloride 106 (100-110) mmol/L Carbon Dioxide 29 (21-32) mmol/L BUN 11 (7-18) mg/dL Creatinine 1.3 H (0.55-1.02) mg/dL Est Cr Clr Drug Dosing 38.30 mL/min Estimated GFR (MDRD) 41 L (>60) BUN/Creatinine Ratio 8.5 L (9-20) Glucose 114 (80-116) mg/dL Lactic Acid (0.4-2.0) mmol/L Calcium 7.7 L (8.6-10.2) mg/dL Magnesium (1.8-2.5) mg/dL Total Bilirubin 1.0 (0.1-1.3) mg/dL AST 17 D (5-25) IU/L ALT 14 D (12-36) U/L Alkaline Phosphatase 102 (56-112) IU/L Troponin I (4.0-60.3) pg/mL C-Reactive Protein (0.5-0.9) mg/dL NT-Pro-B Natriuret Pep (<=125) pg/mL Total Protein 5.6 L (6.0-8.0) g/dL Albumin 2.5 L (3.2-4.6) g/dL Globulin 3.1 g/dL Albumin/Globulin Ratio 0.8 Urine Color Yellow (YELLOW) Urine Appearance Slightly cloudy (CLEAR) Urine pH 5.0 (5.0-6.5) Ur Specific [place] 1.015 (1.010-1.025) Urine Protein Negative (NEGATIVE) mg/dL Urine Glucose (UA) Normal (NORMAL) mg/dL Urine Ketones 15 H (NEGATIVE) mg/dL Urine Occult Blood Negative (NEGATIVE) Urine Nitrite Negative (NEGATIVE) Urine Bilirubin Negative (NEGATIVE) Urine Urobilinogen Normal (NEGATIVE) mg/dL Ur Leukocyte Esterase Moderate H (NEGATIVE) Urine WBC 5-10 H (0-5) Ur Squamous Epith Cells Few H (NS,R,O) Urine Bacteria Moderate H (NS) 12/05/19 Range/Units 06:32 WBC (4.5-12.0) X10-3/uL RBC (3.23-5.20) x10(6)uL Hgb (11.5-15.5) g/dL Hct (30.0-51.3) % MCV (80-96) fL MCH (27.7-33.6) pg MCHC (32.2-35.4) g/dL RDW (11.5-15.5) % Plt Count (125-369) X10(3)uL MPV (7.4-10.4) fL Neut % (Auto) (46-82) % Lymph % (Auto) (13-37) % [place] % (Auto) (4-12) % Eos % (Auto) (1.0-5.0) % Baso % (Auto) (0-2) % Neut # (Auto) (1.6-8.3) # Lymph # (Auto) (0.6-5.0) # [place] # (Auto) (0.0-1.3) # Eos # (Auto) (0.0-0.8) # Baso # (Auto) (0.0-0.2) # Sodium (135-145) mmol/L Potassium (3.5-5.3) mmol/L Chloride (100-110) mmol/L Carbon Dioxide (21-32) mmol/L BUN (7-18) mg/dL Creatinine (0.55-1.02) mg/dL Est Cr Clr Drug Dosing mL/min Estimated GFR (MDRD) (>60) BUN/Creatinine Ratio (9-20) Glucose (80-116) mg/dL Lactic Acid (0.4-2.0) mmol/L Calcium (8.6-10.2) mg/dL Magnesium (1.8-2.5) mg/dL Total Bilirubin (0.1-1.3) mg/dL AST (5-25) IU/L ALT (12-36) U/L Alkaline Phosphatase (56-112) IU/L Troponin I 5.2 (4.0-60.3) pg/mL C-Reactive Protein (0.5-0.9) mg/dL NT-Pro-B Natriuret Pep 460 H (<=125) pg/mL Total Protein (6.0-8.0) g/dL Albumin (3.2-4.6) g/dL Globulin g/dL Albumin/Globulin Ratio Urine Color (YELLOW) Urine Appearance (CLEAR) Urine pH (5.0-6.5) Ur Specific [place] (1.010-1.025) Urine Protein (NEGATIVE) mg/dL Urine Glucose (UA) (NORMAL) mg/dL Urine Ketones (NEGATIVE) mg/dL Urine Occult Blood (NEGATIVE) Urine Nitrite (NEGATIVE) Urine Bilirubin (NEGATIVE) Urine Urobilinogen (NEGATIVE) mg/dL Ur Leukocyte Esterase (NEGATIVE) Urine WBC (0-5) Ur Squamous Epith Cells (NS,R,O) Urine Bacteria (NS) Med Orders - Current: Current Medications Acetaminophen (Tylenol) 650 mg PO Q4H PRN PRN Reason: Pain (Mild 1-3)/fever Last Admin: 12/04/19 17:03 Dose: 650 mg Documented by: Albuterol (Proventil Neb Soln) 2.5 mg NEB Q3H [facility] Last Admin: 12/05/19 08:47 Dose: 2.5 mg Documented by: Carvedilol (Coreg) 12.5 mg PO BID [facility] Last Admin: 12/05/19 08:46 Dose: 12.5 mg Documented by: Duloxetine HCl (Cymbalta) 60 mg PO DAILY [facility] Last Admin: 12/05/19 08:46 Dose: 60 mg Documented by: Enoxaparin Sodium (Lovenox) 40 mg SUBCUT Q24H [facility] Last Admin: 12/04/19 20:27 Dose: 40 mg Documented by: Ampicillin Sodium/Sulbactam (Sodium 3 gm/ Sodium Chloride) 100 mls @ 100 mls/hr IV Q6H [facility] Last Admin: 12/05/19 06:30 Dose: 100 mls/hr Documented by: Lisinopril (Prinivil) 20 mg PO DAILY [facility] Last Admin: 12/05/19 08:46 Dose: 20 mg Documented by: Ondansetron HCl (Zofran) 4 mg IV Q4H PRN PRN Reason: Nausea/Vomiting Pantoprazole Sodium (Protonix) 40 mg PO BIDAC [facility] Last Admin: 12/05/19 06:30 Dose: 40 mg Documented by: Sodium Chloride (Saline Flush) 10 ml FLUSH ASDIRECTED PRN PRN Reason: Keep Vein Open Trazodone HCl (Trazodone) 150 mg PO BEDTIME [facility] Last Admin: 12/04/19 20:28 Dose: 150 mg Documented by: Zolpidem Tartrate (Ambien) 5 mg PO BEDTIME PRN PRN Reason: Insomnia Discontinued Medications Albuterol (Proventil Neb Soln) 2.5 mg NEB ONETIME ONE Stop: 12/04/19 12:54 Last Admin: 12/04/19 13:10 Dose: 2.5 mg Documented by: Albuterol/Ipratropium (Duoneb 3.0-0.5 Mg/3 Ml) 3 ml NEB ONETIME ONE Stop: 12/04/19 11:06 Last Admin: 12/04/19 11:11 Dose: 3 ml Documented by: Calcium Carbonate/Glycine (Tums) 1,000 mg PO ONETIME ONE Stop: 12/04/19 12:20 Last Admin: 12/04/19 12:32 Dose: 1,000 mg Documented by: Lactated Ringer's (Ringers, Lactated) 1,000 mls @ 125 mls/hr IV ASDIRECTED [facility] Last Admin: 12/04/19 15:24 Dose: 125 mls/hr Documented by: Sodium Chloride (Normal Saline) 1,000 mls @ 999 mls/hr IV ASDIRECTED [facility] Last Admin: 12/04/19 13:22 Dose: 999 mls/hr Documented by: Ampicillin Sodium/Sulbactam (Sodium 3 gm/ Sodium Chloride) 100 mls @ 100 mls/hr IV ONETIME ONE Stop: 12/04/19 14:22 Last Admin: 12/04/19 13:40 Dose: 100 mls/hr Documented by: Magnesium Sulfate 2 gm/ Premix 50 mls @ 150 mls/hr IV ONETIME ONE Stop: 12/04/19 14:45 Last Admin: 12/04/19 15:28 Dose: 55 mls/hr Documented by: Lactated Ringer's (Ringers, Lactated) 1,000 mls @ 50 mls/hr IV ASDIRECTED [facility] Last Admin: 12/04/19 19:05 Dose: 50 mls/hr Documented by: Pantoprazole Sodium (Protonix Iv) 80 mg IVPUSH .BOLUS ONE Stop: 12/04/19 12:55 Last Admin: 12/04/19 13:21 Dose: 80 mg Documented by: - Exam Quality Assessment: No: Supplemental Oxygen General: Alert, Oriented, Cooperative, No Acute Distress Lungs: Clear to Auscultation (upper lobes, RLL), Decreased Breath Sounds (LLL), Rales (fine LLL) GI/Abdominal Exam: Normal Bowel Sounds, Soft, Non-Tender, No Distention Extremities: Pedal Edema (trace BLE) Peripheral Pulses: 2+: Radial (L), Radial (R) Sepsis Event Note - Evaluation Sepsis Screening Result: No Definite Risk - Focused Exam Vital Signs: Vital Signs Temp Pulse Pulse Resp BP BP Pulse Ox 12/05/19 09:00 82 12/05/19 08:46 72 135/53 L 12/05/19 08:00 98.5 F 82 18 112/56 L 95 12/05/19 06:00 94 12/05/19 03:28 98.7 F 71 18 113/46 L 93 L 12/05/19 03:24 71 12/05/19 00:30 82 12/05/19 00:00 98.2 F 82 18 105/58 L 94 L Pulse Ox Pulse Ox 12/05/19 09:00 92 L 12/05/19 08:46 12/05/19 08:00 12/05/19 06:00 92 L 12/05/19 03:28 12/05/19 03:24 93 L 12/05/19 00:30 94 L 12/05/19 00:00 Date Exam was Performed: 12/05/19 Time Exam was Performed: 10:48 - Problem List & Annotations (1) Aspiration pneumonitis SNOMED Code(s): 335022044 Code(s): J69.0 - PNEUMONITIS DUE TO INHALATION OF FOOD AND VOMIT Status: Acute Current Visit: Yes (2) Polyp of ascending colon SNOMED Code(s): 313221897 Code(s): K63.5 - POLYP OF COLON Status: Acute Current Visit: Yes Qualifiers: Colon polyp type: adenomatous Qualified Code(s): D12.2 - Benign neoplasm of ascending colon Annotation/Comment:: x2, biopsies pending. (3) MDD (major depressive disorder) SNOMED Code(s): 659096630 Code(s): F32.9 - MAJOR DEPRESSIVE DISORDER, SINGLE EPISODE, UNSPECIFIED Status: Chronic Current Visit: Yes Qualifiers: Major depression recurrence: recurrent (4) Non-ischemic cardiomyopathy SNOMED Code(s): 00067792 Code(s): I42.8 - OTHER CARDIOMYOPATHIES Status: Chronic Current Visit: Yes (5) Obesities, morbid SNOMED Code(s): 415253724 Code(s): E66.01 - MORBID (SEVERE) OBESITY DUE TO EXCESS CALORIES Status: Chronic Current Visit: Yes (6) Personality disorder SNOMED Code(s): 63297373 Code(s): F60.9 - PERSONALITY DISORDER, UNSPECIFIED Status: Chronic Current Visit: Yes (7) Status post gastric bypass for obesity SNOMED Code(s): 512471225, 026534222, 400208317, 723686893 Code(s): Z98.84 - BARIATRIC SURGERY STATUS Status: Chronic Current Visit: Yes - Problem List Review Problem List Initiated/Reviewed/Updated: Yes - My Orders Last 24 Hours: My Active Orders 12/06/19 05:00 CRP [C-REACTIVE PROTEIN] [CHEM] Routine - Plan Plan:: 1. Unasyn IV q6h day 2, WBC went to 15.0, expected as aspiration occurred yesterday, responding well to IV antibiotics clinically. Weaned off oxygen this morning. Recheck labs tomorrow am. 2. D/C telemetry. 3. Saline lock, encourage oral intake. 4. Spiritual services consult. 5. Anticipate discharge this weekend on oral Augmentin. 6. Will adjust treatments as necessary.
[2019-12-05] MEDS ORDERED: Albuterol 0.083% 2.5 MG/3 ML Neb Soln NEB PRN (12:00)
[2019-12-05] MEDS: traZODone 50 MG Tab PO SCH (20:37)
[2019-12-05] MEDS: Enoxaparin 40 MG/0.4 ML Syringe SUBCUT SCH (20:37)
[2019-12-06] MEDS: Ampicillin/Sulbactam Na 3 GM in Sodium Chloride 0.9% 100 ML IV SCH ×4 (01:06→19:30)
[2019-12-06] MEDS: Pantoprazole 40 MG Tab.CR PO SCH ×2 (07:46→17:56)
[2019-12-06] MEDS: Carvedilol 12.5 MG Tab PO SCH (08:32)
[2019-12-06] MEDS: DULoxetine 60 MG Cap PO SCH (08:32)
[2019-12-06] MEDS: Lisinopril 20 MG Tab PO SCH (08:32)
[2019-12-06] MEDS: Lactated Ringers 1,000 ML IV SCH ×2 (10:03→20:37)
--- NOTE | 2019-12-06 11:04 | PCM.PN ---
- General Info Date of Service: 12/06/19 Admission Dx/Problem (Free Text): Rhonda went back on oxygen yesterday afternoon, saturations had dropped down to 87%, feeling a little rougher this morning, not really eating, states she is a little scared to as she doesn't want diarrhea. Would like some broth or soup. Had bowel movement yesterday. WBC went down today to normal but CRP went up. Urine grew gram negative rods, ID & sensitivities pending. - Patient Data Vitals - Most Recent: Last Vital Signs Temp 99.2 F 12/06/19 01:12 Pulse 106 H 12/06/19 08:32 Resp 18 12/06/19 04:00 BP 95/50 L 12/06/19 08:32 Pulse Ox 92 L 12/06/19 01:12 Weight - Most Recent: 276 lb 1.6 oz Lab Results Last 24 Hours: Laboratory Results - last 24 hr 12/06/19 12/06/19 12/06/19 Range/Units 06:25 06:25 06:25 WBC 10.9 (4.5-12.0) X10-3/uL RBC 3.76 (3.23-5.20) x10(6)uL Hgb 11.6 (11.5-15.5) g/dL Hct 35.4 (30.0-51.3) % MCV 94.1 (80-96) fL MCH 30.8 (27.7-33.6) pg MCHC 32.8 (32.2-35.4) g/dL RDW 13.8 (11.5-15.5) % Plt Count 190 (125-369) X10(3)uL MPV 6.9 L (7.4-10.4) fL Neut % (Auto) 76.5 (46-82) % Lymph % (Auto) 13.8 (13-37) % [place] % (Auto) 5.9 (4-12) % Eos % (Auto) 4 (1.0-5.0) % Baso % (Auto) 0 (0-2) % Neut # (Auto) 8.4 H (1.6-8.3) # Lymph # (Auto) 1.5 (0.6-5.0) # [place] # (Auto) 0.6 (0.0-1.3) # Eos # (Auto) 0.4 (0.0-0.8) # Baso # (Auto) 0.0 (0.0-0.2) # Sodium 138 (135-145) mmol/L Potassium 3.4 L (3.5-5.3) mmol/L Chloride 105 (100-110) mmol/L Carbon Dioxide 28 (21-32) mmol/L BUN 15 (7-18) mg/dL Creatinine 1.4 H (0.55-1.02) mg/dL Est Cr Clr Drug Dosing 35.57 mL/min Estimated GFR (MDRD) 38 L (>60) BUN/Creatinine Ratio 10.7 (9-20) Glucose 109 (80-116) mg/dL Calcium 7.8 L (8.6-10.2) mg/dL C-Reactive Protein 18.7 H* (0.5-0.9) mg/dL Javed Results Last 24 Hours: Microbiology 12/04/19 13:31 Urine Culture - Preliminary Urine, Bladder Gram Negative Rods Med Orders - Current: Current Medications Acetaminophen (Tylenol) 650 mg PO Q4H PRN PRN Reason: Pain (Mild 1-3)/fever Last Admin: 12/04/19 17:03 Dose: 650 mg Documented by: Albuterol (Proventil Neb Soln) 2.5 mg NEB Q4H PRN PRN Reason: Dyspnea Carvedilol (Coreg) 12.5 mg PO BID [facility] Last Admin: 12/06/19 08:32 Dose: 12.5 mg Documented by: Duloxetine HCl (Cymbalta) 60 mg PO DAILY [facility] Last Admin: 12/06/19 08:32 Dose: 60 mg Documented by: Enoxaparin Sodium (Lovenox) 40 mg SUBCUT Q24H [facility] Last Admin: 12/05/19 20:37 Dose: 40 mg Documented by: Guaifenesin (Mucinex) 600 mg PO BID [facility] Ampicillin Sodium/Sulbactam (Sodium 3 gm/ Sodium Chloride) 100 mls @ 100 mls/hr IV Q6H [facility] Last Admin: 12/06/19 07:47 Dose: 100 mls/hr Documented by: Lactated Ringer's (Ringers, Lactated) 1,000 mls @ 100 mls/hr IV ASDIRECTED ON [facility] Last Admin: 12/06/19 10:03 Dose: 100 mls/hr Documented by: Lisinopril (Prinivil) 20 mg PO DAILY [facility] Last Admin: 12/06/19 08:32 Dose: 20 mg Documented by: Ondansetron HCl (Zofran) 4 mg IV Q4H PRN PRN Reason: Nausea/Vomiting Pantoprazole Sodium (Protonix) 40 mg PO BIDAC [facility] Last Admin: 12/06/19 07:46 Dose: 40 mg Documented by: Saccharomyces Boulardii (Florastor) 250 mg PO BID [facility] Sodium Chloride (Saline Flush) 10 ml FLUSH ASDIRECTED PRN PRN Reason: Keep Vein Open Last Admin: 12/06/19 07:48 Dose: 10 ml Documented by: Trazodone HCl (Trazodone) 150 mg PO BEDTIME [facility] Last Admin: 12/05/19 20:37 Dose: 150 mg Documented by: Zolpidem Tartrate (Ambien) 5 mg PO BEDTIME PRN PRN Reason: Insomnia Discontinued Medications Albuterol (Proventil Neb Soln) 2.5 mg NEB ONETIME ONE Stop: 12/04/19 12:54 Last Admin: 12/04/19 13:10 Dose: 2.5 mg Documented by: Albuterol (Proventil Neb Soln) 2.5 mg NEB Q3H [facility] Last Admin: 12/05/19 08:47 Dose: 2.5 mg Documented by: Albuterol/Ipratropium (Duoneb 3.0-0.5 Mg/3 Ml) 3 ml NEB ONETIME ONE Stop: 12/04/19 11:06 Last Admin: 12/04/19 11:11 Dose: 3 ml Documented by: Calcium Carbonate/Glycine (Tums) 1,000 mg PO ONETIME ONE Stop: 12/04/19 12:20 Last Admin: 12/04/19 12:32 Dose: 1,000 mg Documented by: Lactated Ringer's (Ringers, Lactated) 1,000 mls @ 125 mls/hr IV ASDIRECTED ON [facility] Last Admin: 12/04/19 15:24 Dose: 125 mls/hr Documented by: Sodium Chloride (Normal Saline) 1,000 mls @ 999 mls/hr IV ASDIRECTED ON [facility] Last Admin: 12/04/19 13:22 Dose: 999 mls/hr Documented by: Ampicillin Sodium/Sulbactam (Sodium 3 gm/ Sodium Chloride) 100 mls @ 100 mls/hr IV ONETIME ONE Stop: 12/04/19 14:22 Last Admin: 12/04/19 13:40 Dose: 100 mls/hr Documented by: Magnesium Sulfate 2 gm/ Premix 50 mls @ 150 mls/hr IV ONETIME ONE Stop: 12/04/19 14:45 Last Admin: 12/04/19 15:28 Dose: 55 mls/hr Documented by: Lactated Ringer's (Ringers, Lactated) 1,000 mls @ 50 mls/hr IV ASDIRECTED [facility] Last Admin: 12/04/19 19:05 Dose: 50 mls/hr Documented by: Pantoprazole Sodium (Protonix Iv) 80 mg IVPUSH .BOLUS ONE Stop: 12/04/19 12:55 Last Admin: 12/04/19 13:21 Dose: 80 mg Documented by: - Exam Quality Assessment: Supplemental Oxygen General: Alert, Oriented, Cooperative, No Acute Distress Lungs: Normal Respiratory Effort, Decreased Breath Sounds (bibasilar). No: Rales, Wheezing Cardiovascular: Regular Rate, Regular Rhythm GI/Abdominal Exam: Normal Bowel Sounds, Soft, Non-Tender, No Distention Extremities: No Pedal Edema Skin: Ecchymosis (scattered on his legs, large linear one on right thigh, healing.) Sepsis Event Note - Evaluation Sepsis Screening Result: No Definite Risk - Focused Exam Vital Signs: Vital Signs Temp Pulse Pulse Resp BP BP Pulse Ox 12/06/19 08:32 106 H 95/50 L 12/06/19 04:00 18 12/06/19 01:12 99.2 F 94 18 93/55 L 92 L Date Exam was Performed: 12/06/19 Time Exam was Performed: 10:58 - Problem List & Annotations (1) Aspiration pneumonitis SNOMED Code(s): 853472891 Code(s): J69.0 - PNEUMONITIS DUE TO INHALATION OF FOOD AND VOMIT Status: Acute Current Visit: Yes (2) Polyp of ascending colon SNOMED Code(s): 026393606 Code(s): K63.5 - POLYP OF COLON Status: Acute Current Visit: Yes Qualifiers: Colon polyp type: adenomatous Qualified Code(s): D12.2 - Benign neoplasm of ascending colon Annotation/Comment:: x2, biopsies pending. (3) MDD (major depressive disorder) SNOMED Code(s): 016955190 Code(s): F32.9 - MAJOR DEPRESSIVE DISORDER, SINGLE EPISODE, UNSPECIFIED Status: Chronic Current Visit: Yes Qualifiers: Major depression recurrence: recurrent (4) Non-ischemic cardiomyopathy SNOMED Code(s): 32053868 Code(s): I42.8 - OTHER CARDIOMYOPATHIES Status: Chronic Current Visit: Yes (5) Obesities, morbid SNOMED Code(s): 131207044 Code(s): E66.01 - MORBID (SEVERE) OBESITY DUE TO EXCESS CALORIES Status: Chronic Current Visit: Yes (6) Personality disorder SNOMED Code(s): 05378275 Code(s): F60.9 - PERSONALITY DISORDER, UNSPECIFIED Status: Chronic Current Visit: Yes (7) Status post gastric bypass for obesity SNOMED Code(s): 457158581, 165584523, 941416823, 191811839 Code(s): Z98.84 - BARIATRIC SURGERY STATUS Status: Chronic Current Visit: Yes - Problem List Review Problem List Initiated/Reviewed/Updated: Yes - My Orders Last 24 Hours: My Active Orders 12/05/19 12:00 Albuterol [Proventil Neb Soln] 2.5 mg NEB Q4H PRN 12/06/19 09:00 Lactated Ringers [Ringers, Lactated] 1,000 ml IV ASDIRECTED 12/06/19 10:12 Communication Order [RC] DAILY 12/06/19 10:15 Saccharomyces Boulardii [Florastor] 250 mg PO BID 12/06/19 Lunch Regular Diet [DIET] 12/06/19 21:00 guaiFENesin [Mucinex] 600 mg PO BID - Plan Plan:: 1. Unasyn IV q6h day 3, WBC went to 10.9 down from 15, CRP elevated today. Recheck labs tomorrow am and adjust treatments as necessary. 2. Restart LR at 100 ml/hr, BP was 95/50 this morning, Cr bumped up to 1.4, encourage oral intake. 3. Add Flutter valve q1hwa, Mucinex 600 mg bid, Florastor 250 mg bid. 4. Change diet to regular, may have broths, & chicken noodle soup.
[2019-12-06] MEDS: Saccharomyces Boulardii (Probiotic) 250 MG Cap PO SCH ×2 (11:25→20:35)
[2019-12-06] MEDS: guaiFENesin 600 MG Tab.ER PO SCH (20:34)
[2019-12-06] MEDS: Enoxaparin 40 MG/0.4 ML Syringe SUBCUT SCH (20:35)
[2019-12-06] MEDS: traZODone 50 MG Tab PO SCH (20:35)
[2019-12-07] MEDS: Ampicillin/Sulbactam Na 3 GM in Sodium Chloride 0.9% 100 ML IV SCH ×4 (01:08→19:44)
[2019-12-07] MEDS: Pantoprazole 40 MG Tab.CR PO SCH ×2 (07:33→17:30)
[2019-12-07] MEDS: Saccharomyces Boulardii (Probiotic) 250 MG Cap PO SCH ×2 (08:37→21:19)
[2019-12-07] MEDS: DULoxetine 60 MG Cap PO SCH (08:37)
[2019-12-07] MEDS: guaiFENesin 600 MG Tab.ER PO SCH ×2 (08:38→21:19)
[2019-12-07] MEDS: Lactated Ringers 1,000 ML IV SCH ×2 (08:39→21:20)
[2019-12-07] MEDS: methylPREDNISolone Sodium Succinate 40 MG/1 ML SDV IVPUSH SCH (10:19)
--- NOTE | 2019-12-07 11:20 | PCM.PN ---
- General Info Date of Service: 12/07/19 Admission Dx/Problem (Free Text): Rhonda is feeling a little better this morning, up in the chair. Had bowel incontinence this morning after coughing but she did get some sputum up. No nausea or vomiting. No fevers or chills. - Patient Data Vitals - Most Recent: Last Vital Signs Temp 98.0 F 12/07/19 08:00 Pulse 77 12/07/19 08:00 Resp 16 12/07/19 08:00 BP 117/62 12/07/19 08:00 Pulse Ox 96 12/07/19 08:00 Weight - Most Recent: 276 lb 1.6 oz I&O - Last 24 Hours: Intake & Output 12/06/19 12/07/19 12/07/19 22:59 06:59 14:59 Intake Total 1221 775 Balance 1221 775 Lab Results Last 24 Hours: Laboratory Results - last 24 hr 12/07/19 12/07/19 Range/Units 06:05 06:05 WBC 8.4 (4.5-12.0) X10-3/uL RBC 3.37 (3.23-5.20) x10(6)uL Hgb 10.5 L (11.5-15.5) g/dL Hct 32.1 (30.0-51.3) % MCV 95.3 (80-96) fL MCH 31.3 (27.7-33.6) pg MCHC 32.8 (32.2-35.4) g/dL RDW 13.8 (11.5-15.5) % Plt Count 182 (125-369) X10(3)uL MPV 6.9 L (7.4-10.4) fL Neut % (Auto) 68.0 (46-82) % Lymph % (Auto) 17.5 (13-37) % [place] % (Auto) 7.3 (4-12) % Eos % (Auto) 7 H (1.0-5.0) % Baso % (Auto) 1 (0-2) % Neut # (Auto) 5.7 (1.6-8.3) # Lymph # (Auto) 1.5 (0.6-5.0) # [place] # (Auto) 0.6 (0.0-1.3) # Eos # (Auto) 0.6 (0.0-0.8) # Baso # (Auto) 0.0 (0.0-0.2) # Sodium 139 (135-145) mmol/L Potassium 3.6 (3.5-5.3) mmol/L Chloride 106 (100-110) mmol/L Carbon Dioxide 30 (21-32) mmol/L BUN 11 (7-18) mg/dL Creatinine 1.4 H (0.55-1.02) mg/dL Est Cr Clr Drug Dosing 35.57 mL/min Estimated GFR (MDRD) 38 L (>60) BUN/Creatinine Ratio 7.9 L (9-20) Glucose 104 (80-116) mg/dL Calcium 7.7 L (8.6-10.2) mg/dL Javed Results Last 24 Hours: Microbiology 12/04/19 13:31 Urine Culture - Preliminary Urine, Bladder Escherichia Coli Med Orders - Current: Current Medications Acetaminophen (Tylenol) 650 mg PO Q4H PRN PRN Reason: Pain (Mild 1-3)/fever Last Admin: 12/04/19 17:03 Dose: 650 mg Documented by: Albuterol (Proventil Neb Soln) 2.5 mg NEB Q4H PRN PRN Reason: Dyspnea Duloxetine HCl (Cymbalta) 60 mg PO DAILY [facility] Last Admin: 12/07/19 08:37 Dose: 60 mg Documented by: Enoxaparin Sodium (Lovenox) 40 mg SUBCUT Q24H [facility] Last Admin: 12/06/19 20:35 Dose: 40 mg Documented by: Guaifenesin (Mucinex) 600 mg PO BID [facility] Last Admin: 12/07/19 08:38 Dose: 600 mg Documented by: Ampicillin Sodium/Sulbactam (Sodium 3 gm/ Sodium Chloride) 100 mls @ 100 mls/hr IV Q6H [facility] Last Admin: 12/07/19 07:33 Dose: 100 mls/hr Documented by: Lactated Ringer's (Ringers, Lactated) 1,000 mls @ 100 mls/hr IV ASDIRECTED [facility] Last Admin: 12/07/19 08:39 Dose: 100 mls/hr Documented by: Methylprednisolone Sodium Succinate (Solu-Medrol) 60 mg IVPUSH DAILY [facility] Stop: 12/08/19 09:01 Last Admin: 12/07/19 10:19 Dose: 60 mg Documented by: Ondansetron HCl (Zofran) 4 mg IV Q4H PRN PRN Reason: Nausea/Vomiting Pantoprazole Sodium (Protonix) 40 mg PO BIDAC [facility] Last Admin: 12/07/19 07:33 Dose: 40 mg Documented by: Saccharomyces Boulardii (Florastor) 250 mg PO BID [facility] Last Admin: 12/07/19 08:37 Dose: 250 mg Documented by: Sodium Chloride (Saline Flush) 10 ml FLUSH ASDIRECTED PRN PRN Reason: Keep Vein Open Last Admin: 12/06/19 07:48 Dose: 10 ml Documented by: Trazodone HCl (Trazodone) 150 mg PO BEDTIME [facility] Last Admin: 12/06/19 20:35 Dose: 150 mg Documented by: Zolpidem Tartrate (Ambien) 5 mg PO BEDTIME PRN PRN Reason: Insomnia Discontinued Medications Albuterol (Proventil Neb Soln) 2.5 mg NEB ONETIME ONE Stop: 12/04/19 12:54 Last Admin: 12/04/19 13:10 Dose: 2.5 mg Documented by: Albuterol (Proventil Neb Soln) 2.5 mg NEB Q3H [facility] Last Admin: 12/05/19 08:47 Dose: 2.5 mg Documented by: Albuterol/Ipratropium (Duoneb 3.0-0.5 Mg/3 Ml) 3 ml NEB ONETIME ONE Stop: 12/04/19 11:06 Last Admin: 12/04/19 11:11 Dose: 3 ml Documented by: Calcium Carbonate/Glycine (Tums) 1,000 mg PO ONETIME ONE Stop: 12/04/19 12:20 Last Admin: 12/04/19 12:32 Dose: 1,000 mg Documented by: Carvedilol (Coreg) 12.5 mg PO BID [facility] Last Admin: 12/06/19 08:32 Dose: 12.5 mg Documented by: Lactated Ringer's (Ringers, Lactated) 1,000 mls @ 125 mls/hr IV ASDIRECTED [facility] Last Admin: 12/04/19 15:24 Dose: 125 mls/hr Documented by: Sodium Chloride (Normal Saline) 1,000 mls @ 999 mls/hr IV ASDIRECTED [facility] Last Admin: 12/04/19 13:22 Dose: 999 mls/hr Documented by: Ampicillin Sodium/Sulbactam (Sodium 3 gm/ Sodium Chloride) 100 mls @ 100 mls/hr IV ONETIME ONE Stop: 12/04/19 14:22 Last Admin: 12/04/19 13:40 Dose: 100 mls/hr Documented by: Magnesium Sulfate 2 gm/ Premix 50 mls @ 150 mls/hr IV ONETIME ONE Stop: 12/04/19 14:45 Last Admin: 12/04/19 15:28 Dose: 55 mls/hr Documented by: Lactated Ringer's (Ringers, Lactated) 1,000 mls @ 50 mls/hr IV ASDIRECTED [facility] Last Admin: 12/04/19 19:05 Dose: 50 mls/hr Documented by: Lisinopril (Prinivil) 20 mg PO DAILY [facility] Last Admin: 12/06/19 08:32 Dose: 20 mg Documented by: Pantoprazole Sodium (Protonix Iv) 80 mg IVPUSH .BOLUS ONE Stop: 12/04/19 12:55 Last Admin: 12/04/19 13:21 Dose: 80 mg Documented by: - Exam Quality Assessment: Supplemental Oxygen General: Alert, Oriented, Cooperative, No Acute Distress Lungs: Clear to Auscultation (BUL), Normal Respiratory Effort, Decreased Breath Sounds (BLL), Crackles (LLL). No: Wheezing Cardiovascular: Regular Rate, Regular Rhythm GI/Abdominal Exam: Normal Bowel Sounds, Soft, Non-Tender, No Distention Extremities: No Pedal Edema Sepsis Event Note - Evaluation Sepsis Screening Result: No Definite Risk - Focused Exam Vital Signs: Vital Signs Temp Pulse Resp BP Pulse Ox 12/07/19 08:00 98.0 F 77 16 117/62 96 12/07/19 04:00 20 12/07/19 01:00 99.0 F 87 20 93/47 L 93 L Date Exam was Performed: 12/07/19 Time Exam was Performed: 11:15 - Problem List & Annotations (1) Aspiration pneumonitis SNOMED Code(s): 780456309 Code(s): J69.0 - PNEUMONITIS DUE TO INHALATION OF FOOD AND VOMIT Status: Acute Current Visit: Yes (2) Polyp of ascending colon SNOMED Code(s): 082122916 Code(s): K63.5 - POLYP OF COLON Status: Acute Current Visit: Yes Qualifiers: Colon polyp type: adenomatous Qualified Code(s): D12.2 - Benign neoplasm of ascending colon Annotation/Comment:: x2, biopsies pending. (3) MDD (major depressive disorder) SNOMED Code(s): 902255732 Code(s): F32.9 - MAJOR DEPRESSIVE DISORDER, SINGLE EPISODE, UNSPECIFIED Status: Chronic Current Visit: Yes Qualifiers: Major depression recurrence: recurrent (4) Non-ischemic cardiomyopathy SNOMED Code(s): 41538806 Code(s): I42.8 - OTHER CARDIOMYOPATHIES Status: Chronic Current Visit: Yes (5) Obesities, morbid SNOMED Code(s): 241054153 Code(s): E66.01 - MORBID (SEVERE) OBESITY DUE TO EXCESS CALORIES Status: Chronic Current Visit: Yes (6) Personality disorder SNOMED Code(s): 68814707 Code(s): F60.9 - PERSONALITY DISORDER, UNSPECIFIED Status: Chronic Current Visit: Yes (7) Status post gastric bypass for obesity SNOMED Code(s): 655933609, 921087061, 563985944, 980003109 Code(s): Z98.84 - BARIATRIC SURGERY STATUS Status: Chronic Current Visit: Yes (8) UTI (urinary tract infection), uncomplicated SNOMED Code(s): 53853445 Code(s): N39.0 - URINARY TRACT INFECTION, SITE NOT SPECIFIED Status: Acute Current Visit: Yes - Problem List Review Problem List Initiated/Reviewed/Updated: Yes - My Orders Last 24 Hours: My Active Orders 12/06/19 Lunch Regular Diet [DIET] 12/06/19 21:00 guaiFENesin [Mucinex] 600 mg PO BID 12/07/19 09:45 methylPREDNISolone Sod Succ [Solu-MEDROL] 60 mg IVPUSH DAILY 12/08/19 05:00 BASIC METABOLIC PANEL,BMP [CHEM] Routine CRP [C-REACTIVE PROTEIN] [CHEM] Routine - Plan Plan:: 1. Unasyn IV q6h day 4, WBC went to 8.4 down from 10. UC grew E. Coli sensitive to Unasyn, 50,000-100,000 cfu. Recheck labs tomorrow am and adjust treatments as necessary. 2. LR at 100 ml/hr, BP was 85/50 last night, Dr Perez stopped her Coreg and Lisinopril, Cr stable at 1.4, encourage oral intake. 3. IS(incentive spirometry) & Flutter valve q1hwa, Mucinex 600 mg bid, Florastor 250 mg bid. 4. Regular diet, bananas, applesauce, rice & toast encouraged, avoid oranges, watermelon, prunes.
[2019-12-07] MEDS: traZODone 50 MG Tab PO SCH (21:19)
[2019-12-07] MEDS: Enoxaparin 40 MG/0.4 ML Syringe SUBCUT SCH (21:19)
[2019-12-08] MEDS: Ampicillin/Sulbactam Na 3 GM in Sodium Chloride 0.9% 100 ML IV SCH ×3 (01:14→14:06)
[2019-12-08] MEDS: Lactated Ringers 1,000 ML IV SCH ×2 (08:19→20:29)
[2019-12-08] MEDS: Pantoprazole 40 MG Tab.CR PO SCH ×2 (08:24→17:58)
[2019-12-08] MEDS: DULoxetine 60 MG Cap PO SCH (08:24)
[2019-12-08] MEDS: Saccharomyces Boulardii (Probiotic) 250 MG Cap PO SCH ×2 (08:29→20:32)
[2019-12-08] MEDS: guaiFENesin 600 MG Tab.ER PO SCH ×2 (08:29→20:34)
[2019-12-08] MEDS: methylPREDNISolone Sodium Succinate 40 MG/1 ML SDV IVPUSH SCH (09:24)
--- NOTE | 2019-12-08 17:19 | PCM.PN ---
- General Info Date of Service: 12/08/19 Admission Dx/Problem (Free Text): Rhonda is feeling better, has remained off oxygen, deconditioned so PT saw her, they stated she did not require services. Had some loose stool again, would like to see Dietary. Her labs improved today, still not eating well. No chest pain, nausea or vomiting. She does live alone and does not qualify for services. - Patient Data Vitals - Most Recent: Last Vital Signs Temp 97.9 F 12/08/19 08:00 Pulse 79 12/08/19 08:00 Resp 18 12/08/19 08:00 BP 143/75 H 12/08/19 08:00 Pulse Ox 94 L 12/08/19 13:00 Weight - Most Recent: 276 lb 1.6 oz I&O - Last 24 Hours: Intake & Output 12/08/19 12/08/19 12/08/19 06:59 14:59 22:59 Intake Total 306 Balance 306 Lab Results Last 24 Hours: Laboratory Results - last 24 hr 12/08/19 12/08/19 Range/Units 06:35 06:35 Sodium 139 (135-145) mmol/L Potassium 3.6 (3.5-5.3) mmol/L Chloride 105 (100-110) mmol/L Carbon Dioxide 30 (21-32) mmol/L BUN 10 (7-18) mg/dL Creatinine 1.1 H (0.55-1.02) mg/dL Est Cr Clr Drug Dosing 45.27 mL/min Estimated GFR (MDRD) 50 L (>60) BUN/Creatinine Ratio 9.1 (9-20) Glucose 126 H (80-116) mg/dL Calcium 8.2 L (8.6-10.2) mg/dL C-Reactive Protein 17.0 H* (0.5-0.9) mg/dL Javed Results Last 24 Hours: Microbiology 12/04/19 13:31 Urine Culture - Final Urine, Bladder Escherichia Coli Med Orders - Current: Current Medications Acetaminophen (Tylenol) 650 mg PO Q4H PRN PRN Reason: Pain (Mild 1-3)/fever Last Admin: 12/04/19 17:03 Dose: 650 mg Documented by: Albuterol (Proventil Neb Soln) 2.5 mg NEB Q4H PRN PRN Reason: Dyspnea Amoxicillin/Clavulanate Potassium (Augmentin 875 Mg/125 Mg) 1 tab PO BIDMEALS [facility] Stop: 12/14/19 08:01 Duloxetine HCl (Cymbalta) 60 mg PO DAILY [facility] Last Admin: 12/08/19 08:24 Dose: 60 mg Documented by: Enoxaparin Sodium (Lovenox) 40 mg SUBCUT Q24H [facility] Last Admin: 12/07/19 21:19 Dose: 40 mg Documented by: Guaifenesin (Mucinex) 600 mg PO BID [facility] Last Admin: 12/08/19 08:29 Dose: 600 mg Documented by: Lactated Ringer's (Ringers, Lactated) 1,000 mls @ 100 mls/hr IV ASDIRECTED [facility] Last Admin: 12/08/19 08:19 Dose: 100 mls/hr Documented by: Ondansetron HCl (Zofran) 4 mg IV Q4H PRN PRN Reason: Nausea/Vomiting Pantoprazole Sodium (Protonix) 40 mg PO BIDAC [facility] Last Admin: 12/08/19 08:24 Dose: 40 mg Documented by: Saccharomyces Boulardii (Florastor) 250 mg PO BID [facility] Last Admin: 12/08/19 08:29 Dose: 250 mg Documented by: Sodium Chloride (Saline Flush) 10 ml FLUSH ASDIRECTED PRN PRN Reason: Keep Vein Open Last Admin: 12/06/19 07:48 Dose: 10 ml Documented by: Trazodone HCl (Trazodone) 150 mg PO BEDTIME [facility] Last Admin: 12/07/19 21:19 Dose: 150 mg Documented by: Zolpidem Tartrate (Ambien) 5 mg PO BEDTIME PRN PRN Reason: Insomnia Discontinued Medications Albuterol (Proventil Neb Soln) 2.5 mg NEB ONETIME ONE Stop: 12/04/19 12:54 Last Admin: 12/04/19 13:10 Dose: 2.5 mg Documented by: Albuterol (Proventil Neb Soln) 2.5 mg NEB Q3H [facility] Last Admin: 12/05/19 08:47 Dose: 2.5 mg Documented by: Albuterol/Ipratropium (Duoneb 3.0-0.5 Mg/3 Ml) 3 ml NEB ONETIME ONE Stop: 12/04/19 11:06 Last Admin: 12/04/19 11:11 Dose: 3 ml Documented by: Calcium Carbonate/Glycine (Tums) 1,000 mg PO ONETIME ONE Stop: 12/04/19 12:20 Last Admin: 12/04/19 12:32 Dose: 1,000 mg Documented by: Carvedilol (Coreg) 12.5 mg PO BID [facility] Last Admin: 12/06/19 08:32 Dose: 12.5 mg Documented by: Lactated Ringer's (Ringers, Lactated) 1,000 mls @ 125 mls/hr IV ASDIRECTED [facility] Last Admin: 12/04/19 15:24 Dose: 125 mls/hr Documented by: Sodium Chloride (Normal Saline) 1,000 mls @ 999 mls/hr IV ASDIRECTED [facility] Last Admin: 12/04/19 13:22 Dose: 999 mls/hr Documented by: Ampicillin Sodium/Sulbactam (Sodium 3 gm/ Sodium Chloride) 100 mls @ 100 mls/hr IV ONETIME ONE Stop: 12/04/19 14:22 Last Admin: 12/04/19 13:40 Dose: 100 mls/hr Documented by: Ampicillin Sodium/Sulbactam (Sodium 3 gm/ Sodium Chloride) 100 mls @ 100 mls/hr IV Q6H [facility] Stop: 12/08/19 15:00 Last Admin: 12/08/19 14:06 Dose: 100 mls/hr Documented by: Magnesium Sulfate 2 gm/ Premix 50 mls @ 150 mls/hr IV ONETIME ONE Stop: 12/04/19 14:45 Last Admin: 12/04/19 15:28 Dose: 55 mls/hr Documented by: Lactated Ringer's (Ringers, Lactated) 1,000 mls @ 50 mls/hr IV ASDIRECTED [facility] Last Admin: 12/04/19 19:05 Dose: 50 mls/hr Documented by: Lisinopril (Prinivil) 20 mg PO DAILY [facility] Last Admin: 12/06/19 08:32 Dose: 20 mg Documented by: Methylprednisolone Sodium Succinate (Solu-Medrol) 60 mg IVPUSH DAILY [facility] Stop: 12/08/19 09:01 Last Admin: 12/08/19 09:24 Dose: 60 mg Documented by: Pantoprazole Sodium (Protonix Iv) 80 mg IVPUSH .BOLUS ONE Stop: 12/04/19 12:55 Last Admin: 12/04/19 13:21 Dose: 80 mg Documented by: - Exam Quality Assessment: No: Supplemental Oxygen General: Alert, Oriented, Cooperative, No Acute Distress Lungs: Clear to Auscultation, Normal Respiratory Effort, Decreased Breath Sounds (LLL), Crackles (LLL). No: Wheezing Cardiovascular: Regular Rate, Regular Rhythm GI/Abdominal Exam: Normal Bowel Sounds, Soft, Non-Tender, No Distention Extremities: No Pedal Edema Peripheral Pulses: 2+: Radial (L), Radial (R) Sepsis Event Note - Evaluation Sepsis Screening Result: No Definite Risk - Focused Exam Vital Signs: Vital Signs Temp Pulse Resp BP Pulse Ox Pulse Ox 12/08/19 13:00 94 L 12/08/19 08:00 97.9 F 79 18 143/75 H 94 L Date Exam was Performed: 12/08/19 Time Exam was Performed: 17:11 - Problem List & Annotations (1) Aspiration pneumonitis SNOMED Code(s): 519401417 Code(s): J69.0 - PNEUMONITIS DUE TO INHALATION OF FOOD AND VOMIT Status: Acute Current Visit: Yes (2) Polyp of ascending colon SNOMED Code(s): 358496188 Code(s): K63.5 - POLYP OF COLON Status: Acute Current Visit: Yes Qualifiers: Colon polyp type: adenomatous Qualified Code(s): D12.2 - Benign neoplasm of ascending colon Annotation/Comment:: x2, biopsies pending. (3) MDD (major depressive disorder) SNOMED Code(s): 640811966 Code(s): F32.9 - MAJOR DEPRESSIVE DISORDER, SINGLE EPISODE, UNSPECIFIED Status: Chronic Current Visit: Yes Qualifiers: Major depression recurrence: recurrent (4) Non-ischemic cardiomyopathy SNOMED Code(s): 74131854 Code(s): I42.8 - OTHER CARDIOMYOPATHIES Status: Chronic Current Visit: Yes (5) Obesities, morbid SNOMED Code(s): 934791586 Code(s): E66.01 - MORBID (SEVERE) OBESITY DUE TO EXCESS CALORIES Status: Chronic Current Visit: Yes (6) Personality disorder SNOMED Code(s): 13765287 Code(s): F60.9 - PERSONALITY DISORDER, UNSPECIFIED Status: Chronic Current Visit: Yes (7) Status post gastric bypass for obesity SNOMED Code(s): 934278314, 523687427, 014569656, 204280575 Code(s): Z98.84 - BARIATRIC SURGERY STATUS Status: Chronic Current Visit: Yes (8) UTI (urinary tract infection), uncomplicated SNOMED Code(s): 62155923 Code(s): N39.0 - URINARY TRACT INFECTION, SITE NOT SPECIFIED Status: Acute Current Visit: Yes - Problem List Review Problem List Initiated/Reviewed/Updated: Yes - My Orders Last 24 Hours: My Active Orders 12/08/19 08:32 PT Evaluation and Treatment [CONS] Routine 12/08/19 18:00 Amoxicillin/Clavulanate K [Augmentin 875 MG/125 MG] 1 tab PO BIDMEALS - Plan Plan:: 1. Unasyn IV q6h day 5, CRP down to 17.0 from 18.7. UC grew E. Coli sensitive to Unasyn, 50,000-100,000 cfu. Will do Unasyn dose this afternoon and start Augmentin 875 bid tonight to make sure she tolerates. Prednisone 40 mg po daily to start tomorrow am, will do 3 doses. Had 2 doses SoluMedrol, last dose today. Recheck labs tomorrow am and adjust treatments as necessary. 2. LR at 100 ml/hr, improved Cr to 1.1, will finish IV encourage oral intake. 3. IS(incentive spirometry) & Flutter valve q1hwa, Mucinex 600 mg bid, Florastor 250 mg bid. 4. Plan to discharge tomorrow if remains on room air, tolerates oral antibiotics for 6 more days.
[2019-12-08] MEDS: Amoxicillin/Clavulanate K 875-125 MG Tab PO SCH (17:58)
[2019-12-08] MEDS: Enoxaparin 40 MG/0.4 ML Syringe SUBCUT SCH (20:33)
[2019-12-08] MEDS: traZODone 50 MG Tab PO SCH (20:35)
[2019-12-09] MEDS: Lactated Ringers 1,000 ML IV SCH (06:26)
[2019-12-09] MEDS: Pantoprazole 40 MG Tab.CR PO SCH (06:29)
[2019-12-09] MEDS: DULoxetine 60 MG Cap PO SCH (08:51)
[2019-12-09] MEDS: guaiFENesin 600 MG Tab.ER PO SCH (08:51)
[2019-12-09] MEDS: Saccharomyces Boulardii (Probiotic) 250 MG Cap PO SCH (08:51)
[2019-12-09] MEDS: Amoxicillin/Clavulanate K 875-125 MG Tab PO SCH (08:51)
--- NOTE | 2019-12-09 15:10 | PCM.DCSUM1 ---
Discharge Summary - Hospital Course HPI Initial Comments: Rhonda is a 64-year-old female who comes in because of aspiration pneumonitis. She had a colonoscopy this morning, by Dr. Clayton, for constipation. During the procedure and conscious sedation, she experienced vomiting and ostensibly aspirated. She subsequently became hypoxic was transferred to the ER where workup revealed an infiltration of the left lobe of lung. She is currently stable on 2 L of oxygenation;complains of no pain she dove initial wheezing whi ch is symptoms improved. She does history of obesity, she status post gastric bypass. She also has a history of nonischemic cardiomyopathy major depression and iron deficiency anemia. Diagnosis: Stroke: No - Discharge Data Discharge Date: 12/09/19 Discharge Disposition: Home, Self-Care 01 Condition: Good - Referral to Home Health Primary Care Physician: Isidro Clements MD - Discharge Diagnosis/Problem(s) (1) Aspiration pneumonitis SNOMED Code(s): 004664540 ICD Code: J69.0 - PNEUMONITIS DUE TO INHALATION OF FOOD AND VOMIT Status: Acute Current Visit: Yes (2) Polyp of ascending colon SNOMED Code(s): 929847506 ICD Code: K63.5 - POLYP OF COLON Status: Acute Current Visit: Yes Problem Details: x2, biopsies pending. Qualifiers: Colon polyp type: adenomatous Qualified Code(s): D12.2 - Benign neoplasm of ascending colon (3) MDD (major depressive disorder) SNOMED Code(s): 676456447 ICD Code: F32.9 - MAJOR DEPRESSIVE DISORDER, SINGLE EPISODE, UNSPECIFIED Status: Chronic Current Visit: Yes Qualifiers: Major depression recurrence: recurrent (4) Non-ischemic cardiomyopathy SNOMED Code(s): 99629977 ICD Code: I42.8 - OTHER CARDIOMYOPATHIES Status: Chronic Current Visit: Yes (5) Obesities, morbid SNOMED Code(s): 338350409 ICD Code: E66.01 - MORBID (SEVERE) OBESITY DUE TO EXCESS CALORIES Status: Chronic Current Visit: Yes (6) Personality disorder SNOMED Code(s): 62255746 ICD Code: F60.9 - PERSONALITY DISORDER, UNSPECIFIED Status: Chronic Current Visit: Yes (7) Status post gastric bypass for obesity SNOMED Code(s): 418854389, 546849424, 029835504, 137339788 ICD Code: Z98.84 - BARIATRIC SURGERY STATUS Status: Chronic Current Visit: Yes (8) UTI (urinary tract infection), uncomplicated SNOMED Code(s): 95742697 ICD Code: N39.0 - URINARY TRACT INFECTION, SITE NOT SPECIFIED Status: Acute Current Visit: Yes - Patient Summary/Data Operative Procedure(s) Performed: c scope with biopsy Consults: Consultations 12/08/19 08:32 PT Evaluation and Treatment [CONS] Routine Please Evaluate and Treat. PT Reason for Consult: Strengthening Special Instructions: deconditioned This query below is only for informational purposes and is not editable. Admission Diagnosis/Problem: Colonoscopy Hospital Course: Had aspiration pneumonitis secondary to colonoscopy, they had to do abdominal manipulation during the scope, patient was lying on her left side and aspirated bile. She was taken to ER where she was evaluated, admitted for floor, required oxygen at admission, was weaned on Sunday but then desaturated so required oxygen over the weekend, was weaned Sunday evening. She was started on Unasyn and received 4 days, switched to oral yesterday, has tolerated it. Her WBC bumped up to 15.0, CRP up to 18.7, her WBC normalized and CRP today was 6.8. She will take Augmentin for 6 more days to complete 10 day course. She was on IV fluids initially, discontinued but oral intake was not good after stopping, Cr increased so restarted and discontinued prior to discharge. Her kidney function returned to normal prior to discharge. She was started on SoluMedrol on , received 2 doses daily and switched to oral today, will go home with 2 more doses and finish on . She was hypotensive on Sunday evening so her bl ood pressure medications were discontinued, her blood pressures remained low/normal even with IV fluids so her blood pressure medications discontinued, if her pressures come up after discharge she can discuss with Dr Clements on if she needs to restart them. She also had PT consult as she was deconditioned, not able to walk far without getting short of breath. Assessed yesterday, she does not require services, she has been up in the halls more yesterday, strength has improved. - Patient Instructions Diet: Usual Diet as Tolerated, No Alcoholic Beverages Activity: No Strenuous Activities, Rest and Relax Today Driving: May Drive Today Showering/Bathing: May Shower Notify Provider of: Fever, Increased Pain Other/Special Instructions: Colonoscopy results by letter. Follow up with Dr Clements once finish antibiotics to make sure you don't need further antibiotics. - Discharge Plan *PRESCRIPTION DRUG MONITORING PROGRAM REVIEWED*: Not Applicable *COPY OF PRESCRIPTION DRUG MONITORING REPORT IN PATIENT JUMA: Not Applicable Prescriptions/Med Rec: Amoxicillin/Clavulanate K [Augmentin 875-125 MG] 1 tab PO BIDMEALS 6 Days #12 tablet predniSONE [Prednisone] 40 mg PO DAILY 2 Days #4 tablet Home Medications: Home Meds DULoxetine [Cymbalta] 60 mg PO DAILY 03/18/17 [History] Ibuprofen 1 - 3 mg PO Q4H PRN 03/18/17 [History] Omeprazole 20 mg PO BIDAC 03/18/17 [History] hydrOXYzine HCL [hydrOXYzine] 25 - 50 mg PO BEDTIME PRN 03/18/17 [History] traZODone 150 mg PO BEDTIME 03/18/17 [History] Acetaminophen [Tylenol] 650 mg PO Q4H PRN tablet 12/09/19 [Rx] Amoxicillin/Clavulanate K [Augmentin 875-125 MG] 1 tab PO BIDMEALS 6 Days #12 tablet 12/09/19 [Rx] Saccharomyces Boulardii [Florastor] 250 mg PO BID cap 12/09/19 [Rx] guaiFENesin [Mucinex] 600 mg PO BID tab.er 12/09/19 [Rx] predniSONE [Prednisone] 40 mg PO DAILY 2 Days #4 tablet 12/09/19 [Rx] Oxygen Therapy Mode: Room Air Patient Handouts: Fall Prevention in Hospitals, Adult, Aspiration Pneumonia, Venous Thromboembolism Prevention - Discharge Summary/Plan Comment DC Time >30 min.: No - General Info Date of Service: 12/09/19 Admission Dx/Problem (Free Text: Feeling better, eating and drinking back to normal, afebrile, off oxygen. PT stated she did not require services. Been ambulating well in the halls. Would like to go home. - Patient Data Vitals - Most Recent: Last Vital Signs Temp 97.0 F 12/09/19 08:00 Pulse 104 H 12/09/19 08:00 Resp 14 12/09/19 08:00 BP 131/75 12/09/19 08:00 Pulse Ox 97 12/09/19 13:00 Weight - Most Recent: 276 lb 1.6 oz I&O - Last 24 hours: Intake & Output 12/09/19 12/09/19 12/09/19 06:59 14:59 22:59 Intake Total 680 315 Balance 680 315 Lab Results - Last 24 hrs: Laboratory Results - last 24 hr 12/09/19 12/09/19 Range/Units 06:35 06:35 Sodium 139 (135-145) mmol/L Potassium 3.6 (3.5-5.3) mmol/L Chloride 105 (100-110) mmol/L Carbon Dioxide 28 (21-32) mmol/L BUN 12 (7-18) mg/dL Creatinine 1.1 H (0.55-1.02) mg/dL Est Cr Clr Drug Dosing 45.27 mL/min Estimated GFR (MDRD) 50 L (>60) BUN/Creatinine Ratio 10.9 (9-20) Glucose 111 (80-116) mg/dL Calcium 7.9 L (8.6-10.2) mg/dL C-Reactive Protein 6.8 H* (0.5-0.9) mg/dL Med Orders - Current: Current Medications Acetaminophen (Tylenol) 650 mg PO Q4H PRN PRN Reason: Pain (Mild 1-3)/fever Last Admin: 12/04/19 17:03 Dose: 650 mg Documented by: Albuterol (Proventil Neb Soln) 2.5 mg NEB Q4H PRN PRN Reason: Dyspnea Amoxicillin/Clavulanate Potassium (Augmentin 875 Mg/125 Mg) [address] [facility] Stop: 12/14/19 08:01 Last Admin: 12/09/19 08:51 Dose: 1 tab Documented by: Duloxetine HCl (Cymbalta) [address] [facility] Last Admin: 12/09/19 08:51 Dose: 60 mg Documented by: Enoxaparin Sodium (Lovenox) [address] [facility] Last Admin: 12/08/19 20:33 Dose: 40 mg Documented by: Guaifenesin (Mucinex) [address] [facility] Last Admin: 12/09/19 08:51 Dose: 600 mg Documented by: Ondansetron HCl (Zofran) 4 mg IV Q4H PRN PRN Reason: Nausea/Vomiting Pantoprazole Sodium (Protonix) [address] [facility] Last Admin: 12/09/19 06:29 Dose: 40 mg Documented by: Saccharomyces Boulardii (Florastor) [address] [facility] Last Admin: 12/09/19 08:51 Dose: 250 mg Documented by: Sodium Chloride (Saline Flush) 10 ml FLUSH ASDIRECTED PRN PRN Reason: Keep Vein Open Last Admin: 12/06/19 07:48 Dose: 10 ml Documented by: Trazodone HCl (Trazodone) [address] [facility] Last Admin: 12/08/19 20:35 Dose: 150 mg Documented by: Zolpidem Tartrate (Ambien) 5 mg PO BEDTIME PRN PRN Reason: Insomnia Discontinued Medications Albuterol (Proventil Neb Soln) 2.5 mg NEB ONETIME ONE Stop: 12/04/19 12:54 Last Admin: 12/04/19 13:10 Dose: 2.5 mg Documented by: Albuterol (Proventil Neb Soln) 2.[address] [facility] Last Admin: 12/05/19 08:47 Dose: 2.5 mg Documented by: Albuterol/Ipratropium (Duoneb 3.0-0.5 Mg/3 Ml) 3 ml NEB ONETIME ONE Stop: 12/04/19 11:06 Last Admin: 12/04/19 11:11 Dose: 3 ml Documented by: Calcium Carbonate/Glycine (Tums) 1,000 mg PO ONETIME ONE Stop: 12/04/19 12:20 Last Admin: 12/04/19 12:32 Dose: 1,000 mg Documented by: Carvedilol (Coreg) 12.[address] [facility] Last Admin: 12/06/19 08:32 Dose: 12.5 mg Documented by: Lactated Ringer's (Ringers, Lactated) 1,000 mls @ 125 mls/hr IV ASDIRECTED [facility] Last Admin: 12/04/19 15:24 Dose: 125 mls/hr Documented by: Sodium Chloride (Normal Saline) 1,000 mls @ 999 mls/hr IV ASDIRECTED [facility] Last Admin: 12/04/19 13:22 Dose: 999 mls/hr Documented by: Ampicillin Sodium/Sulbactam (Sodium 3 gm/ Sodium Chloride) 100 mls @ 100 mls/hr IV ONETIME ONE Stop: 12/04/19 14:22 Last Admin: 12/04/19 13:40 Dose: 100 mls/hr Documented by: Ampicillin Sodium/Sulbactam (Sodium 3 gm/ Sodium Chloride) 100 mls @ 100 mls/hr IV Q6H [facility] Stop: 12/08/19 15:00 Last Admin: 12/08/19 14:06 Dose: 100 mls/hr Documented by: Magnesium Sulfate 2 gm/ Premix 50 mls @ 150 mls/hr IV ONETIME ONE Stop: 12/04/19 14:45 Last Admin: 12/04/19 15:28 Dose: 55 mls/hr Documented by: Lactated Ringer's (Ringers, Lactated) 1,000 mls @ 50 mls/hr IV ASDIRECTED [facility] Last Admin: 12/04/19 19:05 Dose: 50 mls/hr Documented by: Lactated Ringer's (Ringers, Lactated) 1,000 mls @ 100 mls/hr IV ASDIRECTED [facility] Last Admin: 12/09/19 06:26 Dose: 100 mls/hr Documented by: Lisinopril (Prinivil) [address] [facility] Last Admin: 12/06/19 08:32 Dose: 20 mg Documented by: Methylprednisolone Sodium Succinate (Solu-Medrol) [address] [facility] Stop: 12/08/19 09:01 Last Admin: 12/08/19 09:24 Dose: 60 mg Documented by: Pantoprazole Sodium (Protonix Iv) 80 mg IVPUSH .BOLUS ONE Stop: 12/04/19 12:55 Last Admin: 12/04/19 13:21 Dose: 80 mg Documented by: - Exam General: Reports: Alert, Oriented, Cooperative, No Acute Distress Lungs: Reports: Clear to Auscultation (BUL), Decreased Breath Sounds (BLL), Crackles (LLL). Denies: Wheezing Cardiovascular: Reports: Regular Rate, Regular Rhythm GI/Abdominal Exam: Normal Bowel Sounds, Soft, Non-Tender, No Distention Extremities: Pedal Edema (trace)
== END 2019-12-09 16:10 | disposition home or self-care (01) | DRG 205 ==
LOC: FB.SDS 07:12 → FB.MS 14:15
PROVIDERS: ADMIT Emergency Medicine; ATTEND Family Medicine
PROC: 0DBK8ZX Excision of Ascending Colon, Via Natural or Artificial Opening Endoscopic, Diagnostic (ICD-10-PCS; principal; 2019-12-04)
DX: J95.88 Other intraoperative complications of respiratory system, not elsewhere classified (principal); J69.0 Pneumonitis due to inhalation of food and vomit; I42.8 Other cardiomyopathies; N39.0 Urinary tract infection, site not specified; F32.9 Major depressive disorder, single episode, unspecified; D50.9 Iron deficiency anemia, unspecified; D12.2 Benign neoplasm of ascending colon; E66.01 Morbid (severe) obesity due to excess calories; Z98.84 Bariatric surgery status; Y83.8 Other surgical procedures as the cause of abnormal reaction of the patient, or of later complication, without mention of misadventure at the time of the procedure; Z79.899 Other long term (current) drug therapy; Z79.52 Long term (current) use of systemic steroids; Z88.8 Allergy status to other drugs, medicaments and biological substances; H54.7 Unspecified visual loss; K21.9 Gastro-esophageal reflux disease without esophagitis; I11.0 Hypertensive heart disease with heart failure; I50.9 Heart failure, unspecified; Z87.442 Personal history of urinary calculi; G43.909 Migraine, unspecified, not intractable, without status migrainosus; F41.1 Generalized anxiety disorder; Z90.49 Acquired absence of other specified parts of digestive tract; Z90.710 Acquired absence of both cervix and uterus; E83.42 Hypomagnesemia
CPT/HCPCS: 00811-QZ; 36415; 71046; 71250; 80048; 80053; 81001; 83605; 83735; 83880; 84484; 85025; 86140; 87086; 87088; 87186; 88305; 93005; 94150; 94640; 97161-GP; A9270-GY; C9113; J0295; J1650; J2405; J2704; J2920; J3475; J7030; J7050; J7120; J7620-GY